=== PATIENT | male | born 1975 | race Caucasian/White ===

== ENCOUNTER 2020-07-18 07:53 | Outpatient (REF) | payer BC, SELFPAY ==
[2020-07-18 12:12] LABS: Alanine Aminotransferase 41 U/L (0-40); Albumin Level 4.4 g/dL (3.5-5.0); Alkaline Phosphatase 69 U/L (39-117); Aspartate Amino Transferase 19 U/L (5-37); Bilirubin Direct 0.2 mg/dL (0.0-0.5); Bilirubin Total 0.4 mg/dL (0.0-1.0); Cholesterol 184 mg/dL; HDL Cholesterol 35 mg/dL; LDL Cholesterol Calculated 116 mg/dl; Total Protein 7.5 g/dL (6.5-8.0); Triglycerides 166 mg/dL
[2020-07-18 12:37] LABS: Estimated Average Glucose 120 mg/dL; Hemoglobin A1c % 5.8 %
== END 2020-07-18 07:54 | disposition home or self-care (01) ==
LOC: HO.MANLR 07:53
PROVIDERS: PCP Internal Medicine; Visit Provider Internal Medicine
DX: R73.01 Impaired fasting glucose (principal); R94.5 Abnormal results of liver function studies
CPT/HCPCS: 36415; 80061; 80076; 83036

== ENCOUNTER 2020-12-19 08:57 | Outpatient (REF) | payer BC, SELFPAY ==
[2020-12-19 11:07] LABS: Estimated Average Glucose 131 mg/dL; Hemoglobin A1c % 6.2 %
[2020-12-19 11:21] LABS: Alanine Aminotransferase 75 U/L (0-40); Albumin Level 4.6 g/dL (3.5-5.0); Alkaline Phosphatase 73 U/L (39-117); Aspartate Amino Transferase 36 U/L (5-37); Bilirubin Direct 0.3 mg/dL (0.0-0.5); Bilirubin Total 1.1 mg/dL (0.0-1.0); Cholesterol 197 mg/dL; HDL Cholesterol 32 mg/dL; LDL Cholesterol Calculated 137 mg/dl; Total Protein 7.6 g/dL (6.5-8.0); Triglycerides 144 mg/dL
== END 2020-12-19 08:58 | disposition home or self-care (01) ==
LOC: HO.MANLDS 08:57
PROVIDERS: PCP Internal Medicine; Visit Provider Internal Medicine
DX: R94.5 Abnormal results of liver function studies (principal); R73.01 Impaired fasting glucose
CPT/HCPCS: 36415; 80061; 80076; 83036

== ENCOUNTER 2021-03-20 08:14 | Outpatient (REF) | payer BC, SELFPAY ==
[2021-03-20 12:03] LABS: Alanine Aminotransferase 96 U/L (0-40); Albumin Level 4.6 g/dL (3.5-5.0); Alkaline Phosphatase 68 U/L (39-117); Aspartate Amino Transferase 42 U/L (5-37); Bilirubin Direct 0.3 mg/dL (0.0-0.5); Bilirubin Total 1.1 mg/dL (0.0-1.0); Cholesterol 213 mg/dL; HDL Cholesterol 35 mg/dL; LDL Cholesterol Calculated 133 mg/dl; Total Protein 7.6 g/dL (6.5-8.0); Triglycerides 228 mg/dL
[2021-03-21 07:21] LABS: Estimated Average Glucose 154 mg/dL
== END 2021-03-20 08:15 | disposition home or self-care (01) ==
LOC: HO.MANLDS 08:14
PROVIDERS: PCP Internal Medicine; Visit Provider Internal Medicine
DX: R73.01 Impaired fasting glucose (principal); R94.5 Abnormal results of liver function studies
CPT/HCPCS: 36415; 80061; 80076; 83036

== ENCOUNTER 2021-06-16 08:06 | Outpatient (REF) | payer BC, SELFPAY ==
[2021-06-16 11:16] LABS: Estimated Average Glucose 117 mg/dL; Hemoglobin A1c % 5.7 %
[2021-06-16 12:05] LABS: Alanine Aminotransferase 35 U/L (0-40); Albumin Level 4.5 g/dL (3.5-5.0); Alkaline Phosphatase 58 U/L (39-117); Aspartate Amino Transferase 19 U/L (5-37); Bilirubin Direct 0.3 mg/dL (0.0-0.5); Bilirubin Total 0.9 mg/dL (0.0-1.0); Cholesterol 188 mg/dL; HDL Cholesterol 36 mg/dL; LDL Cholesterol Calculated 128 mg/dl; Total Protein 7.6 g/dL (6.5-8.0); Triglycerides 121 mg/dL
== END 2021-06-16 08:07 | disposition home or self-care (01) ==
LOC: HO.MANLDS 08:06
PROVIDERS: PCP Internal Medicine; Visit Provider Internal Medicine
DX: E11.9 Type 2 diabetes mellitus without complications (principal); R94.5 Abnormal results of liver function studies
CPT/HCPCS: 36415; 80061; 80076; 83036

== ENCOUNTER 2021-09-25 08:36 | Outpatient (REF) | payer BC, SELFPAY ==
[2021-09-25 11:50] LABS: Alanine Aminotransferase 32 U/L (0-40); Albumin Level 4.5 g/dL (3.5-5.0); Alkaline Phosphatase 62 U/L (39-117); Aspartate Amino Transferase 19 U/L (5-37); Bilirubin Direct 0.3 mg/dL (0.0-0.5); Bilirubin Total 1.2 mg/dL (0.0-1.0); Cholesterol 184 mg/dL; HDL Cholesterol 33 mg/dL; LDL Cholesterol Calculated 121 mg/dl; Total Protein 7.7 g/dL (6.5-8.0); Triglycerides 150 mg/dL
[2021-09-25 12:33] LABS: Estimated Average Glucose 120 mg/dL; Hemoglobin A1c % 5.8 %
== END 2021-09-25 08:37 | disposition home or self-care (01) ==
LOC: HO.MANLDS 08:36
PROVIDERS: PCP Internal Medicine; Visit Provider Internal Medicine
DX: R94.5 Abnormal results of liver function studies (principal); E11.9 Type 2 diabetes mellitus without complications
CPT/HCPCS: 36415; 80061; 80076; 83036

== ENCOUNTER 2022-03-04 15:16 | Outpatient (REF) | payer BC, SELFPAY ==
--- NOTE | ~2022-03-04 | XR_ITS ---
EXAMINATION: XR SHOULDER, RIGHT CLINICAL INFORMATION: Injury COMPARISON: None TECHNIQUE: AP external rotation, Grashey, scapular Y, and axillary views of the right shoulder. FINDINGS: The bones and soft tissues are normal. No fracture. Glenohumeral and acromioclavicular alignment is anatomic with normal joint space. No abnormal soft tissue calcifications. XR/XR shoulder RT min 2V IMPRESSION: Normal right shoulder.
== END 2022-03-04 15:17 | disposition home or self-care (01) ==
LOC: HO.XRAY 15:16
PROVIDERS: PCP Internal Medicine; Visit Provider Internal Medicine
DX: S46.001A Unspecified injury of muscle(s) and tendon(s) of the rotator cuff of right shoulder, initial encounter (principal)
CPT/HCPCS: 73030

== ENCOUNTER 2022-03-09 08:05 | Outpatient (REF) | payer BC, SELFPAY ==
[2022-03-09 11:48] LABS: Estimated Average Glucose 120 mg/dL; Hemoglobin A1c % 5.8 %
[2022-03-09 12:12] LABS: Alanine Aminotransferase 43 U/L (0-40); Albumin Level 4.6 g/dL (3.5-5.0); Alkaline Phosphatase 57 U/L (39-117); Aspartate Amino Transferase 23 U/L (5-37); Bilirubin Direct 0.2 mg/dL (0.0-0.5); Bilirubin Total 0.7 mg/dL (0.0-1.0); Cholesterol 209 mg/dL; HDL Cholesterol 33 mg/dL; LDL Cholesterol Calculated 148 mg/dl; Total Protein 7.8 g/dL (6.5-8.0); Triglycerides 144 mg/dL
== END 2022-03-09 08:06 | disposition home or self-care (01) ==
LOC: HO.MANLDS 08:05
PROVIDERS: Visit Provider Internal Medicine
DX: R94.5 Abnormal results of liver function studies (principal); E11.9 Type 2 diabetes mellitus without complications
CPT/HCPCS: 36415; 80061; 80076; 83036

== ENCOUNTER 2022-07-26 07:48 | Outpatient (REF) | payer BC, SELFPAY ==
[2022-07-26 14:15] LABS: Estimated Average Glucose 131 mg/dL; Hemoglobin A1c % 6.2 %
[2022-07-26 14:26] LABS: Alanine Aminotransferase 53 U/L (0-40); Albumin Level 4.5 g/dL (3.5-5.0); Alkaline Phosphatase 58 U/L (39-117); Aspartate Amino Transferase 26 U/L (5-37); Bilirubin Direct 0.2 mg/dL (0.0-0.5); Bilirubin Total 0.7 mg/dL (0.0-1.0); Cholesterol 194 mg/dL; HDL Cholesterol 30 mg/dL; LDL Cholesterol Calculated 130 mg/dl; Total Protein 7.5 g/dL (6.5-8.0); Triglycerides 173 mg/dL
== END 2022-07-26 07:49 | disposition home or self-care (01) ==
LOC: HO.MANLDS 07:48
PROVIDERS: Visit Provider Internal Medicine
DX: R94.5 Abnormal results of liver function studies (principal); E11.9 Type 2 diabetes mellitus without complications
CPT/HCPCS: 36415; 80061; 80076; 83036

== ENCOUNTER 2022-11-15 07:34 | Outpatient (REF) | payer BC, SELFPAY ==
[2022-11-15 11:53] LABS: Estimated Average Glucose 131 mg/dL; Hemoglobin A1c % 6.2 %
[2022-11-15 12:12] LABS: Alanine Aminotransferase 46 U/L (0-40); Albumin Level 4.7 g/dL (3.5-5.0); Alkaline Phosphatase 66 U/L (39-117); Anion Gap 10 (12-20); Aspartate Amino Transferase 25 U/L (5-37); Bilirubin Total 0.6 mg/dL (0.0-1.0); Blood Urea Nitrogen 20 mg/dL (9-16); Calcium 9.6 mg/dL (8.4-10.2); Carbon Dioxide 30 mmol/L (22-29); Chloride 104 mmol/L (96-108); Cholesterol 128 mg/dL; Estimated Glomerular Filt Rate 51; Glucose Random 135 mg/dL (60-115); HDL Cholesterol 35 mg/dL; LDL Cholesterol Calculated 71 mg/dl; Potassium 4.5 mmol/L (3.3-5.1); Sodium 139 mmol/L (135-145); Total Protein 7.7 g/dL (6.5-8.0); Triglycerides 111 mg/dL
== END 2022-11-15 07:35 | disposition home or self-care (01) ==
LOC: HO.MANLDS 07:34
PROVIDERS: Visit Provider Internal Medicine
DX: I25.10 Atherosclerotic heart disease of native coronary artery without angina pectoris (principal); I25.84 Coronary atherosclerosis due to calcified coronary lesion; E88.81 Metabolic syndrome and other insulin resistance
CPT/HCPCS: 36415; 80053; 80061; 83036

== ENCOUNTER 2022-11-23 10:10 | Outpatient (REF) | payer BC, SELFPAY ==
[2022-11-23 12:09] LABS: Anion Gap 13 (12-20); Blood Urea Nitrogen 14 mg/dL (9-16); Calcium 9.7 mg/dL (8.4-10.2); Carbon Dioxide 27 mmol/L (22-29); Chloride 103 mmol/L (96-108); Estimated Glomerular Filt Rate > 60; Glucose Random 126 mg/dL (60-115); Potassium 3.9 mmol/L (3.3-5.1); Sodium 139 mmol/L (135-145)
[2022-11-23 12:19] LABS: Creatinine Urine 63.32 mg/dL; Microalbumin Urine < 5.0 mg/L
== END 2022-11-23 10:11 | disposition home or self-care (01) ==
LOC: HO.MANLDS 10:10
PROVIDERS: Visit Provider Internal Medicine
DX: R03.0 Elevated blood-pressure reading, without diagnosis of hypertension (principal); R73.01 Impaired fasting glucose
CPT/HCPCS: 36415; 80048; 82043

== ENCOUNTER 2023-02-08 07:57 | Outpatient (REF) | payer BC, SELFPAY ==
[2023-02-08 14:05] LABS: Estimated Average Glucose 140 mg/dL; Hemoglobin A1c % 6.5 %
[2023-02-08 14:11] LABS: Anion Gap 11 (12-20); Blood Urea Nitrogen 15 mg/dL (9-16); Calcium 9.4 mg/dL (8.4-10.2); Carbon Dioxide 27 mmol/L (22-29); Chloride 105 mmol/L (96-108); Cholesterol 114 mg/dL; Estimated Glomerular Filt Rate > 60; Glucose Random 135 mg/dL (60-115); HDL Cholesterol 34 mg/dL; LDL Cholesterol Calculated 63 mg/dl; Potassium 4.2 mmol/L (3.3-5.1); Sodium 139 mmol/L (135-145); Triglycerides 87 mg/dL
== END 2023-02-08 07:58 | disposition home or self-care (01) ==
LOC: HO.MANLDS 07:57
PROVIDERS: Visit Provider Internal Medicine
DX: R03.0 Elevated blood-pressure reading, without diagnosis of hypertension (principal); E88.81 Metabolic syndrome and other insulin resistance; I25.84 Coronary atherosclerosis due to calcified coronary lesion; R73.01 Impaired fasting glucose
CPT/HCPCS: 36415; 80048; 80061; 83036

== ENCOUNTER 2023-05-10 07:50 | Outpatient (REF) | payer BC, SELFPAY ==
[2023-05-10 13:45] LABS: Estimated Average Glucose 137 mg/dL; Hemoglobin A1c % 6.4 % (<6.0)
[2023-05-10 14:07] LABS: Alanine Aminotransferase 58 U/L (0-40); Albumin Level 4.5 g/dL (3.5-5.0); Alkaline Phosphatase 55 U/L (39-117); Anion Gap 11 (12-20); Aspartate Amino Transferase 33 U/L (5-37); Bilirubin Total 0.7 mg/dL (0.0-1.0); Blood Urea Nitrogen 14 mg/dL (9-16); Calcium 9.4 mg/dL (8.4-10.2); Carbon Dioxide 27 mmol/L (22-29); Chloride 107 mmol/L (96-108); Estimated Glomerular Filt Rate > 60; Glucose Random 145 mg/dL (60-115); Potassium 4.3 mmol/L (3.3-5.1); Sodium 141 mmol/L (135-145); Total Protein 7.6 g/dL (6.5-8.0)
== END 2023-05-10 07:51 | disposition home or self-care (01) ==
LOC: HO.MANLDS 07:50
PROVIDERS: Visit Provider Internal Medicine
DX: R73.01 Impaired fasting glucose (principal)
CPT/HCPCS: 36415; 80053; 83036

== ENCOUNTER 2023-07-08 07:48 | Outpatient (REF) | payer BC, SELFPAY ==
[2023-07-13 19:23] LABS: Erythropoietin (EPO) 10.6 mIU/mL (2.6-18.5)
== END 2023-07-08 07:49 | disposition home or self-care (01) ==
LOC: HO.MANLDS 07:48
PROVIDERS: Visit Provider Internal Medicine
DX: E11.9 Type 2 diabetes mellitus without complications (principal)
CPT/HCPCS: 36415; 80053; 82668; 83036; 86140; 86431

== ENCOUNTER 2023-10-21 07:28 | Outpatient (REF) | payer BC, SELFPAY ==
[2023-10-21 13:34] LABS: MANUAL DIFF FLAG NO
[2023-10-21 13:45] LABS: Basophils Percent Auto 0.2 % (0-2); Eosinophils Absolute Auto 0.2 X10*3/uL (0.0-0.4); Eosinophils Percent Auto 3.1 % (0-4); Imm Gran Abs Auto 0.03 X10*3/uL (0.00-0.03); Imm Gran Pct Auto 0.6 % (0.0-0.4); Lymphocytes Absolute Auto 1.5 X10*3/uL (1.2-4.9); Lymphocytes Percent Auto 30.2 % (20-40); Mean Corpuscular HGB Conc 34.8 g/dl (31.0-36.0); Mean Corpuscular Hemoglobin 30.2 pg (27.0-33.0); Mean Platelet Volume 10.4 fL (9.4-12.4); Monocytes Absolute Auto 0.3 X10*3/uL (0.1-1.2); Monocytes Percent Auto 6.1 % (2-11); Neutrophils Absolute Auto 3.1 x10*3/uL (2.0-8.3); Neutrophils Percent Auto 59.8 % (45-73); Platelet Count 187 X10*3/uL (160-400); Red Blood Count 5.29 X10*6/uL (4.60-5.80); Red Cell Distribution Width 11.9 % (11.0-16.0); White Blood Count 5.1 X10*3/uL (4.8-10.8)
[2023-10-21 15:25] LABS: Estimated Average Glucose 154 mg/dL
[2023-10-21 16:33] LABS: Alanine Aminotransferase 50 U/L (0-40); Albumin Level 4.4 g/dL (3.5-5.0); Alkaline Phosphatase 59 U/L (39-117); Anion Gap 11 (12-20); Aspartate Amino Transferase 25 U/L (5-37); Bilirubin Total 0.7 mg/dL (0.0-1.0); Blood Urea Nitrogen 15 mg/dL (9-16); Calcium 9.2 mg/dL (8.4-10.2); Carbon Dioxide 27 mmol/L (22-29); Chloride 105 mmol/L (96-108); Cholesterol 144 mg/dL (<200); Estimated Glomerular Filt Rate > 60; Glucose Random 134 mg/dL (60-115); HDL Cholesterol 35 mg/dL (>40); LDL Cholesterol Calculated 86 mg/dL (<100); Sodium 139 mmol/L (135-145); Total Protein 7.5 g/dL (6.5-8.0); Triglycerides 118 mg/dL (<150)
== END 2023-10-21 07:29 | disposition home or self-care (01) ==
LOC: HO.MANLDS 07:28
PROVIDERS: Visit Provider Internal Medicine
DX: E11.9 Type 2 diabetes mellitus without complications (principal); E78.5 Hyperlipidemia, unspecified
CPT/HCPCS: 36415; 80053; 80061; 83036; 85025

== ENCOUNTER 2024-02-13 07:57 | Outpatient (REF) | payer BC, SELFPAY ==
[2024-02-13 13:37] LABS: Alanine Aminotransferase 38 U/L (0-40); Albumin Level 4.5 g/dL (3.5-5.0); Alkaline Phosphatase 58 U/L (39-117); Anion Gap 13 (12-20); Aspartate Amino Transferase 23 U/L (5-37); Bilirubin Total 0.7 mg/dL (0.0-1.0); Blood Urea Nitrogen 15 mg/dL (9-16); Calcium 9.6 mg/dL (8.4-10.2); Carbon Dioxide 23 mmol/L (22-29); Chloride 107 mmol/L (96-108); Estimated Glomerular Filt Rate > 60; Glucose Random 127 mg/dL (60-115); Sodium 139 mmol/L (135-145); Total Protein 7.6 g/dL (6.5-8.0)
[2024-02-13 13:43] LABS: Estimated Average Glucose 120 mg/dL; Hemoglobin A1c % 5.8 % (<6.0)
== END 2024-02-13 07:58 | disposition home or self-care (01) ==
LOC: HO.MANLDS 07:57
PROVIDERS: Visit Provider Internal Medicine
DX: R73.01 Impaired fasting glucose (principal)
CPT/HCPCS: 36415; 80053; 83036

== ENCOUNTER 2024-05-21 08:23 | Outpatient (REF) | payer BC, SELFPAY ==
[2024-05-21 09:15] LABS: Estimated Average Glucose 128 mg/dL; Hemoglobin A1C 181.3263 umol/L; Hemoglobin A1c % 6.1 % (<6.0); Total Hemoglobin (HGBA1C) 4171.0195 umol/L
== END 2024-05-21 08:24 | disposition home or self-care (01) ==
LOC: HO.LAB 08:23
PROVIDERS: PCP Internal Medicine; Visit Provider Internal Medicine
DX: E11.9 Type 2 diabetes mellitus without complications (principal)
CPT/HCPCS: 36415; 83036

== ENCOUNTER 2024-08-25 07:08 | Outpatient (REF) | payer BC, SELFPAY ==
[2024-08-25 07:33] LABS: MANUAL DIFF FLAG NO
[2024-08-25 08:10] LABS: Basophils Percent Auto 0.4 % (0-2); Eosinophils Absolute Auto 0.2 X10*3/uL (0.0-0.4); Eosinophils Percent Auto 3.6 % (0-4); Hemoglobin 15.3 g/dl (14.0-18.0); Imm Gran Abs Auto 0.01 X10*3/uL (0.00-0.03); Imm Gran Pct Auto 0.2 % (0.0-0.4); Lymphocytes Absolute Auto 1.7 X10*3/uL (1.2-4.9); Lymphocytes Percent Auto 33.4 % (20-40); Mean Corpuscular HGB Conc 34.8 g/dl (31.0-36.0); Mean Corpuscular Hemoglobin 30.2 pg (27.0-33.0); Mean Corpuscular Volume 86.8 fL (80.0-98.0); Mean Platelet Volume 9.9 fL (9.4-12.4); Monocytes Absolute Auto 0.4 X10*3/uL (0.1-1.2); Monocytes Percent Auto 7.9 % (2-11); Neutrophils Absolute Auto 2.8 x10*3/uL (2.0-8.3); Neutrophils Percent Auto 54.5 % (45-73); Platelet Count 175 X10*3/uL (160-400); Red Blood Count 5.07 X10*6/uL (4.60-5.80); Red Cell Distribution Width 11.9 % (11.0-16.0); White Blood Count 5.1 X10*3/uL (4.8-10.8)
[2024-08-25 08:13] LABS: Estimated Average Glucose 123 mg/dL; Hemoglobin A1c % 5.9 % (<6.0); Total Hemoglobin (HGBA1C) 3854.1394 umol/L
[2024-08-25 09:09] LABS: Alanine Aminotransferase 50 U/L (0-40); Albumin Level 4.5 g/dL (3.5-5.0); Alkaline Phosphatase 52 U/L (39-117); Anion Gap 11 (12-20); Aspartate Amino Transferase 28 U/L (5-37); Bilirubin Total 0.6 mg/dL (0.0-1.0); Blood Urea Nitrogen 20 mg/dL (9-16); Calcium 9.4 mg/dL (8.4-10.2); Carbon Dioxide 25 mmol/L (22-29); Chloride 106 mmol/L (96-108); Cholesterol 122 mg/dL (<200); Estimated Glomerular Filt Rate > 60; Glucose Random 121 mg/dL (60-115); HDL Cholesterol 33 mg/dL (>40); LDL Cholesterol Calculated 77 mg/dL (<100); Potassium 4.1 mmol/L (3.3-5.1); Sodium 138 mmol/L (135-145); Total Protein 7.9 g/dL (6.5-8.0); Triglycerides 64 mg/dL (<150)
[2024-08-25 09:30] LABS: Vitamin D 25-OH Total 21.4 ng/mL (>30)
== END 2024-08-25 07:09 | disposition home or self-care (01) ==
LOC: HO.LAB 07:08
PROVIDERS: PCP Internal Medicine; Visit Provider Internal Medicine
DX: E11.9 Type 2 diabetes mellitus without complications (principal)
CPT/HCPCS: 36415; 80053; 80061; 82306; 83036; 85025

== ENCOUNTER 2024-12-07 07:40 | Outpatient (REF) | payer BC, SELFPAY ==
[2024-12-07 14:05] LABS: Estimated Average Glucose 131 mg/dL; Hemoglobin A1c % 6.2 % (<6.0)
== END 2024-12-07 07:41 | disposition home or self-care (01) ==
LOC: HO.MANLDS 07:40
PROVIDERS: Visit Provider Internal Medicine
DX: E11.9 Type 2 diabetes mellitus without complications (principal)
CPT/HCPCS: 36415; 83036

== ENCOUNTER 2025-04-02 07:45 | Outpatient (REF) | payer BC, SELFPAY ==
--- OUTSIDE RECORDS SUMMARY | 2025-04-02 07:54 | XMS_ITS | Encounter Summary ---
Author Organization [facility] Address [address] [place] [address] Phone Care Team Providers Care Associate Project Manager Name Role Phone Lucas Umana DO Primary Care Provider [phone] Lucas Umana DO Unavailable Reason for Referral * MRI/CAT Scan - Closed Specialty Diagnoses / Procedures Referred By Contac t Referred To Contact Radiology Diagnoses Rotator cuff syndrome of right shoulder Procedures MRI Shoulder (Right) CHG MRI, JOINT UPPER EXTREM Lucas Umana DO Phone: tel: fax: [email or web address] [facility] [address] [place], [place] Phone: tel: Referral ID Status Reason Start Date Expiration Date Visits Re quested Visits Authorized [id number] Closed 04/09/2022 05/09/2022 1 1 Encounter Details Date Type Department Care Team (Late st Contact Info) Description 03/31/2022 Transcribe Orders Virtual Department [address] [place] [address] Lucas Umana DO [address] [facility] [address] [email or web address] Rotator cuff syndrome of right shoulder (Primary Dx) Social History Tobacco Use Types Packs/Day Years Used Date Smoking Tobacco: Never Assessed Sex and Gender Information Value Date Recorded Sex Assigned at Male 01/22/2020 9:10 PM EDT Legal Sex Male 9:25 PM EDT Gender Identity Male 01/22/2020 9:10 PM EDT Sexual Orientation Not on file documented as of this encounter Plan of Treatment Not on file documented as of this encounter Results * MRI SHOULDER WITHOUT CONTRAST (RIGHT) (04/09/2022 8:11 AM EDT) Anatomical Region Laterality Modality Shoulder Right Magnetic Resonan ce 04/09/2022 7:37 PM EDT Impressions 04/09/2022 7:53 PM EDT 1.Rim rent tear of the infraspinatus tendon. 2.Supraspinatus and subscapularis tendinosis. 3.Trace subacromial subdeltoid bursal fluid may reflect pinhole full-thickness tear or bursitis. 4.Anterosuperior labral tear associated with small labral cyst. 5.Mild tendinopathy of the intra-articular portion of the biceps tendon. Narrative 04/09/2022 7:53 PM EDT MRI SHOULDER WITHOUT CONTRAST (RIGHT) TECHNIQUE: Multi-sequence, multi-planar MRI of the shoulder without intravenous contrast. COMPARISON: None FINDINGS: Coracoacromial Arch: Moderate osteoarthritic changes of the acromioclavicular joint. Trace subacromial-subdeltoid bursal fluid. Rotator Cuff: No focal muscle atrophy. Tendinosis of the supraspinatus and subscapularis tendons. Rim rent (partial articular surface) tear of the infraspinatus tendon (5:5, 7:17); pinhole full-thickness tear cannot be excluded. Teres minor tendon is intact. Glenoid Labrum and Biceps Tendon: There is tear of the anterosuperior labrum associated with small labral cyst (7:9). Mild tendinopathy of the intra- articular portion of the biceps tendon. The tendon is otherwise intact and normally located within the bicipital groove. Bones: No fracture, osteonecrosis, or focal lesion. Glenohumeral Joint: No effusion, synovitis, or capsulitis. Procedure Note Jesús Yuen MD - 04/09/2022 MRI SHOULDER WITHOUT CONTRAST (RIGHT) TECHNIQUE: Multi-sequence, multi-planar MRI of the shoulder withoutintravenous contrast. COMPARISON: None FINDINGS: Coracoacromial Arch: Moderate osteoarthritic changes of theacromioclavicular joint. Trace subacromial-subdeltoid bursal fluid. Rotator Cuff: No focal muscle atrophy. Tendinosis of the supraspinatus andsubscapularis tendons. Rim rent (partial articular surface) tear of theinfraspinatus tendon (5:5, 7:17); pinhole full-thickness tear cannot beexcluded. Teres minor tendon is intact. Glenoid Labrum and Biceps Tendon: There is tear of the anterosuperiorlabrum associated with small labral cyst (7:9). Mild tendinopathy of theintra-articular portion of the biceps tendon. The tendon is otherwiseintact and normally located within the bicipital groove. Bones: No fracture, osteonecrosis, or focal lesion. Glenohumeral Joint: No effusion, synovitis, or capsulitis. IMPRESSION: 1.Rim rent tear of the infraspinatus tendon. 2.Supraspinatus and subscapularis tendinosis. 3.Trace subacromial subdeltoid bursal fluid may reflect pinholefull-thickness tear or bursitis. 4.Anterosuperior labral tear associated with small labral cyst. 5.Mild tendinopathy of the intra-articular portion of the biceps tendon. Lucas Umana DO [facility]REM[place] Final Result documented in this encounter Visit Diagnoses Diagnosis Rotator cuff syndrome of right shoulder- Primary Rotator cuff syndrome of right shoulder documented in this encounter Care Teams Associate Project Manager Relationship Specialty Start Date End Date Lucas Umana DO PCP - General 04/18/17 Lucas Umana DO [address] [place] [phone] (work) [email or web address] Insurance Assigned Provider 10/08/23 documented as of this encounter Additional Source Comments The information contained in this document represents components of the legal health record. It is not the complete legal health record.[facility]
--- OUTSIDE RECORDS SUMMARY | 2025-04-02 07:54 | XMS_ITS | Encounter Summary ---
Author Organization [facility] Address [address] [place] [phone] Phone Care Team Providers Care Chief Deputy Sheriff Name Role Phone Lyndsay Lucas Summers DO Primary Care Provider [phone] Lucas Umana DO Unavailable Encounter Details Date Type Department Care Team (Late st Contact Info) Description 03/31/2022 Procedure Pass [facility], [address] [address] Social History Tobacco Use Types Packs/Day Years Used Date Smoking Tobacco: Never Assessed Sex and Gender Information Value Date Recorded Sex Assigned at Male 01/22/2020 9:10 PM EDT Legal Sex Male 9:25 PM EDT Gender Identity Male 01/22/2020 9:10 PM EDT Sexual Orientation Not on file documented as of this encounter Plan of Treatment Not on file documented as of this encounter Visit Diagnoses Not on filedocumented in this encounter Care Teams Chief Deputy Sheriff Relationship Specialty Start Date End Date Lcuas Umana DO PCP - General 04/18/17 Lucas Umana DO [address] [place] [phone] Insurance Assigned Provider 10/08/23 documented as of this encounter Additional Source Comments The information contained in this document represents components of the legal health record. It is not the complete legal health record.[facility]
--- OUTSIDE RECORDS SUMMARY | 2025-04-02 07:55 | XMS_ITS | Encounter Summary ---
Author Organization [facility] Address [address] [place] [address] Phone Care Team Providers Care System Operator Name Role Phone Lucas Umana DO Primary Care Provider [phone] Lucas Umana DO Unavailable Encounter Details Date Type Department Care Team ([facility] st Contact Info) Description 02/15/2023 Transcribe Orders Virtual Department [address] [place] [address] Lucas Umana DO [address] [facility] [place] [address] [email or web address] Pain in finger of both hands (Primary Dx) Social History Tobacco Use Types Packs/Day Years Used Date Smoking Tobacco: Never Passive Smoke Exposure: Never Smokeless Tobacco: Never Education Answer Date Recorded Are you interested in more education? Not on celine e 10/29/2022 Are you concerned about learning? Not on file 10/29/2022 No 10/29/2022 No 10/29/2022 Digital Access Answer Date Recorded No 11/24/2022 No 11/24/2022 Reliable internet access at home? Not on file 11/24/2022 Device with a working camera? Not on file Sex and Gender Information Value Date Recorded Sex Assigned at Male 01/22/2020 9:10 PM EDT Legal Sex Male 9:25 PM EDT Gender Identity Male 01/22/2020 9:10 PM EDT Sexual Orientation Not on file documented as of this encounter Plan of Treatment Not on file documented as of this encounter Visit Diagnoses Diagnosis Pain in finger of both hands- Primary documented in this encounter Care Teams System Operator Relationship Specialty Start Date End Date Lucas Umana DO [email or web address] PCP - General 04/18/17 Lucas Umana DO [address] [place] [address] [email or web address] Insurance Assigned Provider 10/08/23 documented as of this encounter Additional Source Comments The information contained in this document represents components of the legal health record. It is not the complete legal health record.[facility]
--- OUTSIDE RECORDS SUMMARY | 2025-04-02 07:55 | XMS_ITS | Encounter Summary ---
Author Organization [facility] Address [address] [place] [phone] Phone Care Team Providers Care Coin Dealer Name Role Phone Lucas Umana DO Primary Care Provider [phone] Lucas Umana DO Unavailable Encounter Details Date Type Department Care Team ([facility] st Contact Info) Description 03/21/2020 Transcribe Orders Virtual Department [address] [place] [address] Lucas Umana DO [address] [facility] [place] [address] [place] [address] Abnormal LFTs (Primary Dx) Social History Tobacco Use Types [...] documented as of this encounter Results * US ABDOMEN LIMITED RIGHT UPPER QUADRANT (04/10/2020 7:38 AM EDT) Anatomical Region Laterality Modality Abdomen Ultrasound 04/10/2020 8:07 AM EDT Impressions 04/10/2020 8:14 AM EDT *Limited by bowel gas.* 1.Hepatic steatosis. 2.Pancreas not visualized. Narrative 04/10/2020 8:14 AM EDT COMPARISON: None. LIMITED ABDOMEN ULTRASOUND FINDINGS: *Study limited by bowel gas.* Liver: Echogenic and sound attenuating. Gallbladder/Biliary Tree: Gallbladder is normal. The common bile duct measures 3 mm which is normal. Pancreas: The pancreas is obscured by bowel gas. Right Kidney: No hydronephrosis. Proximal abdominal aorta/IVC/Main portal vein: IVC and aorta are not visualized. Main portal vein is patent with normal hepatopedal flow. Procedure Note Yadiel Doan MD - 04/10/2020 COMPARISON: None. LIMITED ABDOMEN ULTRASOUND FINDINGS: *Study limited by bowel gas.* Liver: Echogenic and sound attenuating. Gallbladder/Biliary Tree: Gallbladder is normal. The common bile ductmeasures 3 mm which is normal. Pancreas: The pancreas is obscured by bowel gas. Right Kidney: No hydronephrosis. Proximal abdominal aorta/IVC/Main portal vein: IVC and aorta are notvisualized. Main portal vein is patent with normal hepatopedal flow. IMPRESSION: *Limited by bowel gas.* 1.Hepatic steatosis. 2.Pancreas not visualized. us Lucas Umana DO IMG US ABDOMEN Final Result documented in this encounter Visit Diagnoses Diagnosis Abnormal LFTs- Primary Abnormal LFTs documented in this encounter Care Teams Coin Dealer Relationship Specialty Start Date End Date Lucas Umana DO PCP - General 04/18/17 Lucas Umana DO [address] [place] [address] [email or web address] Insurance Assigned Provider 10/08/23 documented as of this encounter Additional Source Comments The information contained in this document represents components of the legal health record. It is not the complete legal health record.[facility]
--- OUTSIDE RECORDS SUMMARY | 2025-04-02 07:55 | XMS_ITS | Encounter Summary ---
Author Organization [facility] Address [address] [place] [address] Phone Care Team Providers Care Thermospray Operator Name Role Phone Lucas Umana DO Primary Care Provider [phone] Lucas Umana DO Unavailable Reason for Referral * MRI/CAT Scan - Closed Specialty Diagnoses / Procedures Referred By Contac t Referred To Contact Radiology Diagnoses Cervical disc disorder with radiculopathy, unspecified cervical region Procedures MRI Cervical Spine Lucas Umana DO Phone: tel: fax: [email or web address] Referral ID Status Reason Start Date Expiration Date Visits Re quested Visits Authorized [id number] Closed 08/10/2019 08/09/2020 1 1 Encounter Details Date Type Department Care Team (Late st Contact Info) Description 08/10/2019 Transcribe Orders Virtual Department [address] [place] [address] Lucas Umana DO [address] [facility] [place] [address] [email or web address] Cervical disc disorder with radiculopathy, unspecified cervical region (Primary Dx) Social History Tobacco Use Types [...] as of this encounter Results * MRI CERVICAL SPINE (NEURO) FOCUS WITHOUT CONTRAST (08/16/2019 9:49 PM EST) Anatomical Region Laterality Modality C-spine Magnetic Resonan ce 08/17/2019 12:2 4 PM EST Impressions 08/17/2019 12:48 PM EST 1. Reversal of the normal cervical curvature. 2. Degenerative disc desiccation C2-C6. 3. Mild central canal stenosis at C3-C4 and C4-C5 secondary to mild disc bulging/disc osteophyte complexes, small central disc protrusion at C4-C5, in combination with reversal of the cervical curvature. 4. No significant neural foraminal stenosis. POS [id number] Narrative 08/17/2019 12:48 PM EST EXAM: MRI CERVICAL SPINE (NEURO) FOCUS WITHOUT CONTRAST HISTORY: *Cervical disc disorder PROGRESSIVE LEFT RADICULOPATHY WITH HAND WEAKNESS AND PARASTHENIA TECHNIQUE: Exam performed on a 1.5 Samantha high-field MRI unit. Sagittal T1, T2 and STIR, axial T2* gradient echo and 3-D T2 sequences obtained. COMPARISON: None. FINDINGS: ALIGNMENT, VERTEBRAE, MARROW AND DISCS: There is reversal of the normal cervical curvature. Vertebrae are normal in height and alignment.. Bone marrow signal is normal. No bone marrow edema or suspicious marrow infiltration. Intervertebral discs are normal in height. Central disc desiccation C2-C6 with the central discs darker in signal. POSTERIOR FOSSA AND CERVICAL SPINAL CORD: The cerebellar tonsils are normal in position. The visualized posterior fossa is normal. The cervical spinal cord is normal in signal. PARASPINOUS SOFT TISSUES: The prevertebral and paravertebral soft tissues are normal. Normal thyroid gland. SPINAL LEVELS: The craniocervical junction and C1-C2 articulation are normal. C2-C3: Normal disc height and signal. No canal or neural foraminal stenosis. C3-C4: Mild posterior disc osteophyte complex. Mild facet hypertrophy. Canal stenosis: Mild. Indentation upon the anterior thecal sac and anterior cord. Neural foraminal stenosis: None. C4-C5: Diffuse disc bulging/posterior disc osteophyte complex with small focal central disc protrusion. Mild bilateral uncovertebral and facet hypertrophy. Canal stenosis: Mild. Indentation upon the anterior thecal sac and anterior cord. Neural foraminal stenosis: None. C5-C6: Diffuse disc bulging/posterior disc osteophyte complex. Mild bilateral facet hypertrophy. Canal stenosis: None. Neural foraminal stenosis: None. C6-C7: No disc herniation. Canal stenosis: None. Neural foraminal stenosis: None. C7-T1: No disc herniation. Canal stenosis: None. Neural foraminal stenosis: None. T1-T2, T2-T3: Included on the sagittal sequences: No canal or neural foraminal stenosis. Procedure Note Yesenia Lewis MD - 08/17/2019 EXAM: MRI CERVICAL SPINE (NEURO) FOCUS WITHOUT CONTRAST HISTORY: *Cervical disc disorder PROGRESSIVE LEFT RADICULOPATHY WITH HAND WEAKNESS AND PARASTHENIA TECHNIQUE: Exam performed on a 1.5 Samantha high-field MRI unit. SagittalT1, T2 and STIR, axial T2* gradient echo and 3-D T2 sequences obtained. COMPARISON: None. FINDINGS: ALIGNMENT, VERTEBRAE, MARROW AND DISCS: There is reversal of the normalcervical curvature. Vertebrae are normal in height and alignment.. Bonemarrow signal is normal. No bone marrow edema or suspicious marrowinfiltration. Intervertebral discs are normal in height. Central discdesiccation C2-C6 with the central discs darker in signal. POSTERIOR FOSSA AND CERVICAL SPINAL CORD: The cerebellar tonsils arenormal in position. The visualized posterior fossa is normal. The cervicalspinal cord is normal in signal. PARASPINOUS SOFT TISSUES: The prevertebral and paravertebral soft tissuesare normal. Normal thyroid gland. SPINAL LEVELS: The craniocervical junction and C1-C2 articulation are normal. C2-C3: Normal disc height and signal. No canal or neural foraminalstenosis. C3-C4: Mild posterior disc osteophyte complex. Mild facet hypertrophy.Canal stenosis: Mild. Indentation upon the anterior thecal sac andanterior cord. Neural foraminal stenosis: None. C4-C5: Diffuse disc bulging/posterior disc osteophyte complex with smallfocal central disc protrusion. Mild bilateral uncovertebral and facethypertrophy. Canal stenosis: Mild. Indentation upon the anterior thecalsac and anterior cord. Neural foraminal stenosis: None. C5-C6: Diffuse disc bulging/posterior disc osteophyte complex. Mildbilateral facet hypertrophy. Canal stenosis: None. Neural foraminalstenosis: None. C6-C7: No disc herniation. Canal stenosis: None. Neural foraminalstenosis: None. C7-T1: No disc herniation. Canal stenosis: None. Neural foraminalstenosis: None. T1-T2, T2-T3: Included on the sagittal sequences: No canal or neuralforaminal stenosis. IMPRESSION: 1. Reversal of the normal cervical curvature. 2. Degenerative disc desiccation C2-C6. 3. Mild central canal stenosis at C3-C4 and C4-C5 secondary to mild discbulging/disc osteophyte complexes, small central disc protrusion at C4-C5,in combination with reversal of the cervical curvature. 4. No significant neural foraminal stenosis. POS [id number] Lucas Umana DO [facility] MR XSPECIALTY Final Result documented in this encounter Visit Diagnoses Diagnosis Cervical disc disorder with radiculopathy, unspecified cervical region- Primary Cervical disc disorder with radiculopathy, unspecified cervical region documented in this encounter Care Teams Thermospray Operator Relationship Specialty Start Date End Date Lucas Umana DO PCP - General 04/18/17 Lucas Umana DO [address] [place] [id number] Insurance Assigned Provider 10/08/23 documented as of this encounter Additional Source Comments The information contained in this document represents components of the legal health record. It is not the complete legal health record.[facility]
--- OUTSIDE RECORDS SUMMARY | 2025-04-02 07:55 | XMS_ITS | Encounter Summary ---
Author Organization [facility] Address [address] [place] [phone] Phone Care Team Providers Care Retread Supervisor Name Role Phone Lyndsay Lucas Summers DO Primary Care Provider [phone] Lucas Umana DO Unavailable Encounter Details Date Type Department Care Team (Late st Contact Info) Description 08/10/2019 Procedure Pass [facility], [address] [address] Social History Tobacco Use Types Packs/Day Years [...] on filedocumented in this encounter Care Teams Retread Supervisor Relationship Specialty Start Date End Date Lucas Umana DO PCP - General 04/18/17 Lucas Umana DO [address] [place] [phone] Insurance Assigned Provider 10/08/23 documented as of this encounter Additional Source Comments The information contained in this document represents components of the legal health record. It is not the complete legal health record.[facility]
--- OUTSIDE RECORDS SUMMARY | 2025-04-02 07:55 | XMS_ITS | Encounter Summary ---
Author Organization [facility] Address [address] [place] [address] Phone Care Team Providers Care Chief Gauger Name Role Phone Lucas Umana DO Primary Care Provider Lucas Umana DO Unavailable Encounter Details Date Type Department Care Team (Late st Contact Info) Description 08/22/2018 Ancillary Orders Virtual Department [address] [place] [address] Noemi Wakefield PA-C [address] [place] [address] Pneumonia due to infectious organism, unspecified laterality, unspecified part of lung Social History Tobacco Use Types Packs/Day Years [...] as of this encounter Visit Diagnoses Diagnosis Pneumonia due to infectious organism, unspecified laterality, unspecified part of lung documented in this encounter Care Teams Chief Gauger Relationship Specialty Start Date End Date Lucas Umana DO PCP - General 04/18/17 Lucas Umana DO [address] [place] [address] (work) [email or web address] Insurance Assigned Provider 10/08/23 documented as of this encounter Additional Source Comments The information contained in this document represents components of the legal health record. It is not the complete legal health record.[facility]
--- OUTSIDE RECORDS SUMMARY | 2025-04-02 07:55 | XMS_ITS | Clinical Summary ---
Author Organization [facility] Address [address] [place], [place] [id number] Phone Care Team Providers Care Turner Splitter Machine Operator Name Role Phone Lucas Umana DO Primary Care Provider [phone] DarrylLucas booth DO Unavailable Allergies Active Allergy Reactions Criticality Noted Date Comments Erythromycin Base 01/22/2020 Penicillin V 01/22/2020 Sulfa (Sulfonamide Antibiotics) 01/02 Medications Medication-Free Text Allergy Medication Active pantoprazole (PROTONIX) 40 MG tablet Take 40 mg by mouth daily. Active rosuvastatin (CRESTOR) 10 MG tablet Take 10 mg by mouth daily. Active diclofenac sodium (VOLTAREN) 75 MG EC tablet Take 75 mg by mouth 2 (two) times a day as needed. 3 Active meloxicam (MOBIC) 15 MG tablet Take 1 tablet by mouth every morning. 3 Active FREESTYLE LITE Strp strips TEST BLOOD SUGARS ONCE DAILY 3 Active Active Problems Problem Noted Date Diagnosed Date Calcification of coronary artery 2022 Hypercholesterolemia 08/03/2022 Elevated blood-pressure read ing without diagnosis of hypertension 12/26/2020 Abnormal liver function tests 11/24/2018 Gastroesophageal reflux disease 06/12/2018 Metabolic syndrome X 09/02/2017 Obstructive sleep apnea syndrome 09/02/2017 Immunizations Immunization Administration Dates Next Due COVID-19 (Pre-04/25) Pfizer Vaccine, mRNA, PF 11/02/2020,10/05/2020 INFLUENZA, SPLIT VIRUS, TRIVALENT PF 03/12/2016, 03/07/2015 Influenza Quadrivalent MDCK Preservative Free IM 07/01/2022 Influenza Quadrivalent Preservative Free IM 05/05,02/19/2020,05/22/2017 Influenza Quadrivalent w/ Preservative IM 2020 Influenza, Unspecified Formulation 04/29/2009 Tdap 01/22/2020 Social History Tobacco Use Types Packs/Day Years [...] PM EDT Sexual Orientation Not on file Last Filed Vital Signs Vital Sign Reading Time Taken Comments Blood Pressure 141/89 09/15/2022 8:13 AM EDT Pulse 80 09/15/2022 8:26 AM EDT Temperature 36.9 C (98.5 F) 09/15/2022 8:13 AM EDT Respiratory Rate 20 09/15/2022 8:13 AM EDT Oxygen Saturation 98% 09/15/2022 8:13 AM EDT Inhaled Oxygen Concentration - - Weight 97.5 kg (215 lb) 09/15/2022 8:13 AM EDT Height 175.3 cm (5' 9 ) 09/15/2022 8:13 AM EDT Body Mass Index 31.75 09/15/2022 8:13 AM EDT Plan of Treatment Health Maintenance Due Date Last Done Comments DEPRESSION SCREENING 1989 HEPATITIS C SCREENING 1995 HIV ONE-TIME SCREENING (18-65 YEARS) 1995 COLOGUARD 2022 COLONOSCOPY 2022 COLORECTAL CANCER SCREENING 2022 FIT TEST 2022 FOBT 2022 SIGMOIDOSCOPY 2022 VIRTUAL COLONOSCOPY 2022 LIPID PANEL 10/20/2024 10/21/2023, 08/0 02/2023, 02/08/2023, Additional history exists INFLUENZA VACCINE (#1) 2025 , 05/30/2021, 05/28/2021, Additional history exists COVID-19 VACCINE ( season) 2025 05/18/2021, 11/02/2020, 11/02/2020, Additional history exists SCREENING FOR DIABETES 05/10/2026 05/10/2023 Adult Td,Tdap Booster 01/21/2030 01/22/2020 SMOKING STATUS SCREENING (Once After 26 Yrs) Completed 03/09/2023 HEPATITIS A VACCINES Aged Out No long er eligible based on patient's age to complete this topic HIB VACCINES Aged Out No longer eligi ble based on patient's age to complete this topic MENINGOCOCCAL VACCINES (ACWY) Aged Out No longer eligible based on patient's age to complete this topic MENINGOCOCCAL VACCINES (B) Aged Out N o longer eligible based on patient's age to complete this topic PNEUMOCOCCAL VACCINES (0-49 years) Aged Out No longer eligible based on patient's age to complete this topic Medical Devices Not on file Procedures Procedure Name Priority Date/Time Associated Diagnosis Comments OUTSIDE HDL Routine 02/27/2011 from Last 3 Months or Most Recently Relevant to Health Maintenance Results * (ABNORMAL) Outside HDL (02/27/2011) HDL - External 33(A) 40 - 80 mg/dL Historical Provider LAB BLOOD ORDERABLES Alma l Result from Last 3 Months or Most Recently Relevant to Health Maintenance Insurance [facility] HMO POS HMO POS HMO POS O POS O POS HMO POS [place] [address] [place] [address] [place], [place] [id number] POS Care Teams Turner Splitter Machine Operator Relationship Specialty Start Date End Date Lucas Umana DO PCP - General 04/18/17 Lucas Umana DO [address] [place] [address] Insurance Assigned Provider 10/08/23 Additional Source Comments The information contained in this document represents components of the legal health record. It is not the complete legal health record.[facility]
--- OUTSIDE RECORDS SUMMARY | 2025-04-02 07:55 | XMS_ITS | Data Portability ---
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) [facility] MODERATE MUST MEET 2 OUT OF 3 ELEMENTS: PROBLEMS, DATA OR RISK ELEMENT 1: PROBLEMS ADDRESSED 1 OR MORE CHRONIC ILLNESS WITH EXACERBATION OR 2 OR MORE STABLE CHRONIC ILLNESSES OR 1 UNDIAGNOSED NEW PROBLEM OR 1 ACUTE ILLNESS W/SYMPTOMS OR 1 ACUTE COMPLICATED INJURY ELEMENT 2: DATA MUST MEET 1 OF 3 CATEGORIES CATEGORY 1: REVIEW OF PRIOR EXTERNAL NOTES, REVIEW OF RESULTS, ORDERING OF EACH TEST, ASSESSMENT REQUIRING INDEPENDENT HISTORIAN OR CATEGORY 2: INDEPENDENT INTERPRETATION OF TESTS BY ANOTHER PHYSICIAN OR SPECIALIST OR CATEGORY 3: DISCUSSION OF MGT OR TEST INTERPRETATION W/EXTERNAL PHYSICIAN OR SPECIALIST ELEMENT 3: RISK RISK OF COMPLICATIONS AND/OR MORBIDITY OR MORTALITY OF PATIENT MANAGEMENT PROVIDER MUST THOROUGHLY DOCUMENT EACH ELEMENT THAT IS COVERED Not available 02/21/2024 15:59:43 05/25/2024 05/25/2024 [id number] [place] [id number] (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 FIRER) [facility] MODERATE MUST MEET 2 OUT OF 3 ELEMENTS: PROBLEMS, DATA OR RISK ELEMENT 1: PROBLEMS ADDRESSED 1 OR MORE CHRONIC ILLNESS WITH EXACERBATION OR 2 OR MORE STABLE CHRONIC ILLNESSES OR 1 UNDIAGNOSED NEW PROBLEM OR 1 ACUTE ILLNESS W/SYMPTOMS OR 1 ACUTE COMPLICATED INJURY ELEMENT 2: DATA MUST MEET 1 OF 3 CATEGORIES CATEGORY 1: REVIEW OF PRIOR EXTERNAL NOTES, REVIEW OF RESULTS, ORDERING OF EACH TEST, ASSESSMENT REQUIRING INDEPENDENT HISTORIAN OR CATEGORY 2: INDEPENDENT INTERPRETATION OF TESTS BY ANOTHER PHYSICIAN OR SPECIALIST OR CATEGORY 3: DISCUSSION OF MGT OR TEST INTERPRETATION W/EXTERNAL PHYSICIAN OR SPECIALIST ELEMENT 3: RISK RISK OF COMPLICATIONS AND/OR MORBIDITY OR MORTALITY OF PATIENT MANAGEMENT PROVIDER MUST THOROUGHLY DOCUMENT EACH ELEMENT THAT IS COVERED Not available 05/25/2024 16:35:54 08/29/2024 08/29/2024 [id number] [place] [id number] (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 FIRER) [facility] MODERATE MUST MEET 2 OUT OF 3 ELEMENTS: PROBLEMS, DATA OR RISK ELEMENT 1: PROBLEMS ADDRESSED 1 OR MORE CHRONIC ILLNESS WITH EXACERBATION OR 2 OR MORE STABLE CHRONIC ILLNESSES OR 1 UNDIAGNOSED NEW PROBLEM OR 1 ACUTE ILLNESS W/SYMPTOMS OR 1 ACUTE COMPLICATED INJURY ELEMENT 2: DATA MUST MEET 1 OF 3 CATEGORIES CATEGORY 1: REVIEW OF PRIOR EXTERNAL NOTES, REVIEW OF RESULTS, ORDERING OF EACH TEST, ASSESSMENT REQUIRING INDEPENDENT HISTORIAN OR CATEGORY 2: INDEPENDENT INTERPRETATION OF TESTS BY ANOTHER PHYSICIAN OR SPECIALIST OR CATEGORY 3: DISCUSSION OF MGT OR TEST INTERPRETATION W/EXTERNAL PHYSICIAN OR SPECIALIST ELEMENT 3: RISK RISK OF COMPLICATIONS AND/OR MORBIDITY OR MORTALITY OF PATIENT MANAGEMENT PROVIDER MUST THOROUGHLY DOCUMENT EACH ELEMENT THAT IS COVERED Not available 08/29/2024 16:41:08 12/10/2024 12/10/2024 [id number] [place] [id number] (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 REVIEW OF PRIOR EXTERNAL NOTES/RESULTS, ORDERING OF TEST(S) CATEGORY 2. ASSESSMENT REQUIRING INDEPENDENT HISTORIAN(S) INCLUDE WHO THE HISTORIAN IS AND RELATION TO PT AND WHY PT IS UNABLE TO GIVE COMPLETE HISTORY ELEMENT 3: RISK (LOW) RISK OF COMPLICATIONS AND/OR MORBIDITY OR MORTALITY OF PATIENT MANAGEMENT PROVIDER MUST THOROUGHLY DOCUMENT ALL OF THE ELEMENTS COVERED Not available 12/10/2024 16:21:36 Plan of Treatment Reminders Order Date Submit Date Provider Last Modified By Organization Details Last Modified Time Details Appointments FOLLOW UP 15 2024 04:00P M DR IRAHETA Not available Not available Not available Lab CMP, serum or plasma 2023 024 [facility], [address] [place] [address], [id number], 08/27/2024 11:30:33 CBC 2023 024 [facility], [address] [place] [address], [id number], 05/25/2024 17:11:37 vitamin D, 25-hydrox y, total, serum 2023 [facility], [address] [place] [address], [id number], 05/25/2024 17:11:37 HbA1c (hemoglob in A1c), blood 2023 [facility], [address] [place] [address], [id number], 05/25/2024 16:47:40 lipid panel, blood 2023 [facility], [address] [place] [address], [id number], 05/25/2024 17:11:37 Referral None recorded. Procedures None recorded. Surgeries None recorded. Imaging CT, coronary calcium score 2023 [facility], [facility] [place], [address], 06/22/2024 09:30:22 Medication Orders meloxicam 15 mg tablet 2023 [facility], [address] [place], [address], 02/21/2024 16:01:47 lisinopri l 2.5 mg tablet 2023 [facility], [address] [place], [address], 02/21/2024 16:04:27 glimepiri de 4 mg tablet 2023 024 [facility], [facility], [place], [address], 02/21/2024 16:05:17 Patient TargetsNo targets recorded. Patient Instructions Encounter Date Encounter Id Patient Instructions Last Modified By Organization Details Last Modified Time 02/21/2024 [id number] type 2 diabetes: care instructions Not available 02/21/2024 16:01:42 08/29/2024 [id number] learning about t ype 2 diabetes Not available 08/29/2024 16:40:38 type 2 diabetes: care instructions Not available 08/29/2024 16:40:38 gastroesophageal reflux disease (GERD): care instructions Not available 08/29/2024 16:40:38 Reason for Referral None Reported. Results Created Date Observation Date Name Description Value Unit Range Abnormal Flag Note LastModifiedBy Organization Detail LastModifiedTime 07/17/1907/17/2024 CT, coron clint calci um score No observ ation record ed. [email or web address] Not Available 07/17 14:03:17 Result Notes None recorded. Problems Name Problem SNOMED Code Status Onset Date Resolution Date Notes Provider Name and Address Organization Details Recorded Time Metaboli c syndrome X 877736063 Completed 201705/17/2023 Lucas Iraheta DO [address] [place] [address], [address], [facility] [place] [facility] 3 16:43:27 Impaired fasting glycemia 204992590 Completed 201707/29/2020 [facility] 14:35:03 [facility] l hyperten vignesh 79383490 Completed 201708/30/2018 resolved Removal Reason: has resolved with diet and wgt loss Lucas Iraheta DO [address] [place] [address], [address], [facility] [place] [facility] 9 09:31:31 Obstruct oscar sleep apnea syndrome 45431631 Completed 201704/20/2021 resolved Lucas Iraheta DO [address] [place] [address], [address], [facility] [place] [facility] 1 12:37:57 Gastroes ophageal reflux disease 400621855 Active 2017 Lucas Iraheta DO [address] [place] [address], [address], [facility] [place] [facility] 8 16:43:19 Liver function tests outside referenc e range 115969131 Completed 201807/29/2020 Lucas Iraheta, DO [address] [place] [address], [address], [facility] [place] [facility] 1 15:58:42 Elevated blood-pr essure reading without diagnosi s of hyperten vignesh 170288989 Active 2020 Lucas Iraheta, DO [address] [place] [address], [address], [facility] [place] [facility] 1 16:48:20 Type 2 diabetes mellitus 68780637 Completed 202006/23/2021 Lucas Iraheta DO [address] [place] [address], [address], [facility] [place] [facility] 3 16:53:14 Injury of tendon of the rotator cuff of shoulder 781580688 Active 2021 Lucas Iraheta DO [address] [place] [address], [address], [facility] [place] [facility] 2 16:18:03 Rupture of rotator cuff of right shoulder 9484310839 5620054 Active 2021 Lucas Iraheta DO [address] [place] [address], [address], [facility] [place] [facility] 2 20:36:04 Hypercho lesterol emia 07889895 Active 2022 Lucas Iraheta DO [address] [place] [address], [address], [facility] [place] [facility] 3 16:20:09 Calcific ation of coronary artery 446093259 Active 2022 Lucas Iraheta DO [address] [place] [address], [address], [facility] [place] [facility] 3 14:41:54 Acute bacteria l sinusiti s 69270642 Active 2022 ENRICO BOYD [address] [place] [address], [address], [facility] [place] [facility] 3 14:59:11 Cough 71397145 Active 2022 ENRICO BOYD [address] [place] [address], [address], [facility] [place] [facility] 3 11:33:34 Pain in fingers of bilatera l hands 4720911225 3151131 Active 2022 Lucas Iraheta, [address], [address], [facility] [place] [facility] 3 17:11:01 Type 2 diabetes mellitus 31572647 Active 2022 Lucas Iraheta DO [address] [place] [address], [address], [facility] [place] [facility] 3 16:53:14 Pain of bilatera l hands 5316849832 4577842 Active 2022 Lucas Iraheta DO [address] [place] [address], [address], [facility] 3 16:53:32 Hyperten sive disorder 02801926 Active 2023 Lucas Iraheta DO [address] [place] [address], [address], [facility] [place] [facility] 4 16:29:28 Injury of tendon of the rotator cuff of shoulder 592731661 Active 2023 Lucas Iraheta DO [address] [place] [address], [address], [facility] [place] [facility] 4 16:02:40 Tendinit is of right rotator cuff 6264733258 4236963 Active 2023 Lucas Iraheta DO [address] [place] [address], [address], [place] [facility] 4 15:58:29 Problem Notes None recorded. Procedures Surgical History Date Name Laterality Status Provider Name and Address Organization Details Recorded Time 024 Corticosteroid Injection completed Lucas Iraheta [address] [place], [address], [facility] 05/29/2024 15:58:13 Imaging Results None recorded. Procedure Notes None recorded. Medical Equipment None Reported. Allergies Allergen ID Allergen Name Allergen Category Reaction Reaction Severity Criticality Documentation Date Start Date Code Code System Note Provider Name and Address Organization Details Recorded Time 175 penicilli n V Not available Not available Not available Not available 09/02/2017 7984 [facility] 8 15:43:17 176 erythromy gloria medicatio n Not available Not available Not available 09/02/2017 4053 RxNorm Solange Caesar banda [facility] 8 15:43:29 177 Substance with sulfonami de structure and antibacte rial mechanism of action (substanc e) medicatio n Not available Not available Not available 09/02/2017 05485 8003 SNOMED [facility] 8 15:43:34 7130 metformin medicatio n Not available Not available Not available 02/14/2023 6809 RxNorm Lucas IrahetaDO [address] [place], [address], [facility] 3 17:04:32 Medications Name Sig Start Date Stop Date Status Note LastModified by Organization Details LastModified Time metformin 500 mg tablet Take 1 tablet twice a day by oral route for 30 days. 12/26 completed Not Available Not Available Not Available prednisone 10 mg tablet 10/10 completed Not Available Not Available Not Available azithromyci n 250 mg tablet TAKE 2 TABLETS (500 MG) BY ORAL ROUTE ONCE DAILY FOR 1 DAY THEN 1 TABLET (250 MG) BY ORAL ROUTE ONCE DAILY FOR 4 DAYS 08/30 completed Not Available Not Available Not Available benzonatate 200 mg capsule Take 1 capsule 3 times a day by oral route for 14 days. 11/19 completed Not Available Not Available Not Available meloxicam 15 mg tablet TAKE 1 TABLET BY MOUTH EVERY DAY FOR 30 DAYS active Not Available Not Available No t Available FreeStyle Lancets 28 gauge USE DIRECTED active Not Available Not Available No t Available lovastatin 40 mg tablet TAKE 1 TABLET BY MOUTH ONCE A DAY. 12/26 completed Not Available Not Available Not Available ciprofloxac in 500 mg tablet Take 1 tablet every 12 hours by oral route for 10 days. 11/19 completed Not Available Not Available Not Available baclofen 10 mg tablet Take 1 tablet 3 times a day by oral route as needed. 12/26 completed Not Available Not Available Not Available cephalexin 500 mg capsule 02/26 completed Not Available Not Available Not Available pantoprazol e 40 mg tablet,roge yed release TAKE ONE TABLET BY MOUTH EVERY DAY 2024 active Not Available Not Available Not Avai lable erythromyci n 5 mg/gram (0.5 %) eye ointment 10/10 completed Not Available Not Available Not Available glimepiride 4 mg tablet TAKE 1 TABLET BY MOUTH EVERY DAY active Not Available Not Available No t Available omeprazole 20 mg capsule,del ayed release take 1 capsule by mouth once daily 11/24 completed Not Available Not Available Not Available diclofenac sodium 75 mg tablet,roge yed release TAKE 1 TABLET BY MOUTH TWICE A DAY 02/14 completed Not Available Not Available Not Available codeine 10 mg-guaifene sin 100 mg/5 mL oral liquid Take 10 mL every 4 hours by oral route. 11/19 completed Not Available Not Available Not Available methylpredn isolone 4 mg tablets in a dose pack Take 1 dose pk by oral route. 11/19 completed Not Available Not Available Not Available albuterol sulfate HFA 90 mcg/actuati on aerosol inhaler Inhale 2 puffs every 4 hours by inhalatio n route for 30 days. 05/17 completed Not Available Not Available Not Available lisinopril 2.5 mg tablet Take 1 tablet(s) every day by oral route for 90 days. 2024 active Not Available Not Available Not Avai lable rosuvastati n 10 mg tablet TAKE 1 TABLET BY MOUTH EVERY DAY active Not Available Not Available No t Available Tylenol 10/05 completed Not Available Not Available Not Available FreeStyle Lite Meter kit USE DIRECTED 10/05 completed Not Available Not Available Not Available OneTouch Verio test strips USE1 STRIP EVERY DAY TO CHECK BLOOD SUGAR active Not Available Not Available No t Available Allergy Take once a day. OTC prn 10/05 completed Not Available Not Available Not Available OneTouch Verio Flex Meter USE DIRECTED. *NOT CVD* active Not Available Not Available No t Available Fluarix Quad (PF) 60 mcg (15 mcg x 4)/0.5 mL IM syringe 10/10 completed Not Available Not Available Not Available OneTouch Delica Plus Lancet 33 gauge USE TO CHECK BLOOD SUGAR DAILY active Not Available Not Available No t Available Flucelvax Quad 60 mcg (15 mcg x 4)/0.5 mL intramuscul ar susp 10/22 completed Not Available Not Available Not Available Afluria Qd 2019- (36 mos up)(PF)60 mcg (15 mcg x4)/0.5 mL IM syringe 02/26 completed Not Available Not Available Not Available Flowflex COVID-19 Antigen Home Test kit USE DIRECTED 08/30 completed Not Available Not Available Not Available FreeStyle Vini 3 Eureka use reader 5x per day change every 14 days 2023 active Not Available Not Available Not Avai lable FreeStyle Vini 3 Plus Sensor device USE DIRECTED. active Not Available Not Available No t Available Vitals Date Recorded Body height Body mass index (BMI) Body weight Oxygen saturation Oxygen saturation in Arterial blood by Pulse oximetry Heart rate Systolic And Diastolic Provider Name and Address Organization Details Last Updated DateTime 5 175.26 cm 33.8 kg/m2 045877. 58 g 95 % 95 % 78 /min 126/82 mm[Hg] Juani Josue [facility] 5 16:07:21 Date Recorded Body height Body mass index (BMI) Body weight Heart rate Oxygen saturation Oxygen saturation in Arterial blood by Pulse oximetry Systolic And Diastolic Provider Name and Address Organization Details Last Updated DateTime 4 175.26 cm 34.3 kg/m2 973681. 43 g 64 /min 97 % 97 % 128/78 mm[Hg] Raman Bansal [facility] 4 15:45:47 Date Recorded Body height Body mass index (BMI) Body weight Heart rate Oxygen saturation Oxygen saturation in Arterial blood by Pulse oximetry Systolic And Diastolic Provider Name and Address Organization Details Last Updated DateTime 4 175.26 cm 34.3 kg/m2 183236. 43 g 73 /min 95 % 95 % 120/76 mm[Hg] Lucas Iraheta, DO [address] [place], [address], [facility] 4 16:08:10 Social History Question Answer Notes LastModified by Organizat ion Details LastModified Time Tobacco Smoking Status Never Smoker Not Available [employer] 05/06/2020 03:36:23 What Was The Date Of Your Most Recent Tobacco Screening? 12/10/2024 [email or web address] Information not available 12/10/2024 Sex: Unknown Functional Status Question Answer Note LastModified by Organization D etails LastModified Time Do you or have you ever used any other forms of tobacco or nicotine? No [email or web address] Information not available 07/25/2023 Mental Status None recorded. Family History Nothing Reported. Medical History No medical history recorded. Immunizations Vaccine Type Date Status Note Provider Nam e and Address Organization Details Recorded Time Influenza, split virus, quadrivalent, preservative 1 completed Yasmin banda [facility] 07/25/2023 15:44:34 Influenza, split virus, quadrivalent, preservative 0 completed Yasmin banda [facility] 07/25/2023 15:44:34 Tdap 0 completed Arianna banda [facility] Internal [facility] 12/23/2020 09:51:04 COVID-19, mRNA, LNP-S, PF, 30 mcg/0.3 mL dose 1 completed Yasmin banda [facility] 07/25/2023 15:44:34 COVID-19, mRNA, LNP-S, PF, 30 mcg/0.3 mL dose 1 completed Yasmin banda [facility] 07/25/2023 15:44:34 Past Encounters Encounter ID Performer Location Encounter Start Date Encounter Closed Date Diagnosis/Indication Diagnosis SNOMED-CT Code Diagnosis ICD10 Code Diagnosis IMO Codes Diagnosis Note [id number] Lucas Iraheta DO [facility] [address] [facility], [place] [facility] [place] [address] 10/10/2017 16:07:11 10/10/2017 17:12:40 Impaired fasting glycemia 373846592 R73.01 last a1c was 5.5 fasting gluc >110 f so is doing ok overalll states could be better w diet and was not careful told and discussed re low carb etc Obstructiv e sleep apnea syndrome 87634732 G47.33 stable with treatment for kenji had surgery Essential hypertension 68569490 I10 home bp have been excellent [id number] Lucas Iraheta DO [facility] [address] [facility], [place] [facility] [place] [address] 04/19/2018 16:17:25 04/24/2018 08:20:24 Metabolic syndrome X 620510740 E88.81 will need to cont to monitor his lab and will follow Essential hypertension 10108093 I10 home bp have been excellent Impaired f asting glycemia 918846459 R73.01 last a1c was 5.8 fasting gluc >110 f so is doing ok overalll states could be better w diet and was not careful told and discussed re low carb etc [id number] Lucas Iraheta DO [facility] [address] [facility] [facility] [place] [address] 08/22/2018 09:42:31 08/22/2018 13:47:40 Impaired fasting glycemia 802632336 R73.01 Essential hypertension 46644470 I10 Pneumonia 860739456 J18. 9 rest out of work today/avelino rrow fluids go to ED if sx worsen CXR if doesn't resolve in 2 weeks tyelenol [id number] Lucas Iraheta DO [facility] [address] [facility], [place] [facility] [place] [address] 2018 09:06:46 2018 09:56:32 Gastroesophageal reflux disease 423757954 K21.9 i am worried that insurance will not protect him by covering his PPI meds for gerd will need to watch closely Impaired f asting glycemia 072494550 R73.01 last a1c was 6.6 fasting gluc >140 so is not doing ok overall states could be better w diet and was not careful told and discussed re low carb etc and that he will be in DM category by next visit carbs are his big prob rechk in 3 months Essential hypertension 93791782 I10 home bp have been excellent fair here cont to monitor Pneumonia 331434009 J18. 9 has slowly resolved since on zpak finished 4 days ago Lucas Iraheta [facility] [address] [facility] [address] 11/24/2018 15:58:15 11/24/2018 16:21:42 Obstructive sleep apnea syndrome 24187834 G47.33 stable with treatment for kenji had surgery Impaired f asting glycemia 342010664 R73.01 last a1c was 6.5 fasting gluc > now his a1c is 6.1 and he is much improved relates he has cut down on portions carbs are his big prob and he is being careful rechk in 3 months Liver func tion tests outside reference range 861191722 R94.5 presumed from the lovastatin rechk in 2-3 mo [id number] Lucas Iraheta DO [facility] [address] [facility],[place] [address] 01/31/2019 16:04:43 01/31/2019 17:00:07 Impaired fasting glycemia 798490967 R73.01 last a1c was 6.1 fasting gluc > now his a1c is 6.1 and he is still improved relates he has cut down on portions but has not been too carefull carbs are his big prob and he is being careful rechk in 3 months Liver func tion tests outside reference range 939277711 R94.5 presumed from the lovastatin rechk level is 63 so we are stable Obstructiv e sleep apnea syndrome 13381106 G47.33 stable with treatment for kenji had surgery Gastroesop hageal reflux disease 386785328 K21.9 i am worried that insurance will not protect him by covering his PPI meds for gerd will need to watch closely [id number] Lucas Iraheta DO [facility] Internal Medicine [address] [facility] [address] [address] 05/04/2019 16:11:36 05/04/2019 16:54:40 Impaired fasting glycemia 583952642 R73.01 last a1c was 6.1 fasting gluc > now his a1c is 6.1 and he is still improved relates he has cut down on portions but has not been too carefull carbs are his big prob we will start metformin 500mg to prevent the onset of diabetes rechk in 3 months Obstructiv e sleep apnea syndrome 64481011 G47.33 stable with treatment for kenji had surgery Injury of flexor tendon of hand 753661325 S66.801A will refer to ortho to have this evaluated [id number] Lucas Iraheta [facility] Medicine [address] [facility],[place] [address] 08/06/2019 15:56:07 08/06/2019 17:02:21 Degeneration of cervical intervertebral disc 20284210 M50.30 Neck pain has gotten significan tly worse Having radiating sharp pain down arms, restricted ROM turning L Impaired f asting glycemia 328966148 R73.01 A1C 6.0 with 500 metformin Continue current tx Gastroesop hageal reflux disease 018540034 K21.9 Has been well controlled with Panto Cervical radiculopathy 25920546 M54.12 Paraesthes ia, motor tone loss in L arm [id number] Lucas Iraheta [facility] [address] [facility],[place] [address] 09/18/2019 16:08:15 09/18/2019 16:45:08 Impaired fasting glycemia 812013480 R73.01 last A1C 6.0 with 500 metformin Continue current tx will get recheck and see him in another month Degenerati ve cervical spinal stenosis 311625562 M48.02 have offered muscle relaxant at bedtime will call if needed he will need PT but this will be delayed told to start at home doing neck exercises [id number] Lucas Iraheta [facility] [address] [facility],[place] [address] 10/23/2019 15:50:34 10/23/2019 16:18:11 Impaired fasting glycemia 545513082 R73.01 last A1C is 5.9 was 6.0 with 500 metformin Continue current tx will get recheck and see him in another month Liver func tion tests outside reference range [id number] R94.5 presumed from the lovastatin rechk level is 60 was 63 so we are stable [id number] Lucas Iraheta DO [facility] Internal Medicine [address] [facility],[place] [address] 02/27/2020 15:55:56 02/27/2020 16:45:50 Impaired fasting glycemia 509594755 R73.01 last A1C is 5.9 was 6.0 with 500 metformin Continue current tx will get recheck and see him in another month Liver func tion tests outside reference range 236047051 R94.5 presumed from the lovastatin rechk level is 60 was 63 so we will hold the lovastat for the next 2 weeks and to check the lab in 3 weeks Gastroesop hageal reflux disease 752594949 K21.9 Has been well controlled with Panto [id number] Lucas Iraheta DO [facility] Internal Medicine [address] [facility],[place] [address] 07/29/2020 08:46:25 07/29/2020 16:39:38 Impaired fasting glycemia 906141112 R73.01 last A1C is 5.8 OFF METFORMIN! !and was 5.9 was 6.0 with 500 metformin Continue no tx now and we will rech in december will get recheck and see him in another 5 month Liver func tion tests outside reference range 799691214 R94.5 now lfts are completely normal off the cholestero l med his LDL is on ly 116 ( from 106 on med)\ so we will continue to hold the statin and rech his lab in december Obstructiv e sleep apnea syndrome 34740404 G47.33 stable with treatment for kenji had surgery and has had no recurrence and recent wgt loss has def helped Gastroesop hageal reflux disease 814604874 K21.9 Has been well controlled with Pantoprazo le and is actually better now that he is eating with portion control as discussed [id number] Lucas Iraheta [facility] Internal Medicine [address] [facility],[place] [address] 12/26/2020 15:49:34 12/26/2020 17:06:58 Gastroesophageal reflux disease 443590123 K21.[place] Has been well controlled with Pantoprazo le and is actually better now that he is eating with portion control as discussed Metabolic syndrome X 237 519209 E88.81 will need to cont to monitor his lab and will follownote d that the LDL is up to 137 [id number] Lucas Iraheta [facility] Internal Medicine [address] [facility],[place] [address] 04/01/2021 08:21:21 04/01/2021 16:36:52 Metabolic syndrome X 276868348 E88.81 will need to cont to monitor his lab and will follownote d that the LDL is up to 137 [id number] Lucas Iraheta [facility] Internal Medicine [address] [facility],[place] [address] [facility] [place] [place] [address] 04/20/2021 11:57:54 04/20/2021 15:07:21 Obstructive sleep apnea syndrome 23312218 G47.33 stable with treatment for kenji had surgery and has had no recurrence and recent wgt loss has def helped Gastroesop hageal reflux disease 871292247 K21.[place] Has been well controlled with Pantoprazo le and is actually better now that he is eating with portion control as discussed Elevated blood-pressure reading without diagnosis of hypertension 397705368 R03.0 stable and is current Type 2 alexandria betes mellitus 40434007 E11.9 long discussion he will cont on track and his impressive results will cont and he will be rechk in jun Lucas Iraheta [facility] Internal Medicine [address] [facility],[place] [address] 06/23/2021 08:21:32 06/24/2021 14:20:57 Elevated blood-pressure reading without diagnosis of hypertension 866220144 R03.0 stable and is current Gastroesop hageal reflux disease 933949785 K21.9 Has been well controlled with Pantoprazo le and is actually better now that he is eating with portion control as discussed Metabolic syndrome X 237 882303 E88.81 he has eliminated the diagnosis of diabetes a1c 5.7has lost 30# and is doing greatawe will hav him rechk a1c in late september [id number] Lucas Iraheta [facility] Internal Medicine [address] [facility], [place] [address] 10/05/2021 16:04:47 10/06/2021 13:39:43 Metabolic syndrome X 974511682 E88.81 he has eliminated the diagnosis of diabetes a1c 5.8 was 5.7 doing wonderful and kept weight offhas lost 30# and is doing greatawe will hav him rechk a1c in late september Elevated blood-pressure reading without diagnosis of hypertension 427446510 R03.0 stable and is current [id number] Lucas Iraheta [facility] Internal Medicine [address] [facility], [place] [address] 03/02/2022 15:35:44 03/02/2022 16:25:33 Active or passive immunization 959342934 Z23 Advised due for Nzoutp62 and flu shot Injury of tendon of the rotator cuff of shoulder 923442149 S46.001A [id number] Lucas Iraheta [facility] Internal Medicine [address] [facility], [place] [address] 03/12/2022 08:13:02 03/15/2022 08:52:55 Elevated blood-pressure reading without diagnosis of hypertension 473942194 R03.0 stable and is currentwe will have him rechk cholestero l in jul Injury of tendon of the rotator cuff of shoulder 836273120 S46.001A xray neg kif when off nsaids his pain vcomes back will need mriu Gastroesop hageal reflux disease 099123246 K21.9 Has been well controlled with Pantoprazo le and is actually better now that he is eating with portion control as discussed Metabolic syndrome X 237 749303 E88.81 he has eliminated the diagnosis of diabetes a1c 5.8 was 5.7 doing wonderful and kept weight offhas kept of weight lost 30# and is doing greatawe will hav him rechk a1c in late september [id number] Lucas Iraheta [facility] Internal Medicine [address] [facility],[place] [address] 08/03/2022 08:10:20 08/04/2022 11:50:02 Elevated blood-pressure reading without diagnosis of hypertension 292119890 R03.0 stable and is currentwe will have him rechk mark anthony webb in mariano Gastroesop hageal reflux disease 153948527 K21.9 Has been well controlled with Pantoprazo le and is actually better now that he is eating with portion control as discussed Impaired f asting glycemia 603441098 R73.01 last A1C is 6.2 still OFF METFORMIN he admits to his diet no too good Continue no tx now and we will rech in december will get recheck and see him in another 5 month Hypercholesterolemia 136 82425 E78.00 reviewed in detail and we discussed getting the CT calcium Family his tory of premature coronary heart disease 785442202 Z82.49 given his cholest and family hx we will follow Injury of tendon of the rotator cuff of shoulder 631180738 S46.001A cont to follow with ortho and will be discussing surgery [id number] DO Tori Murdock Internal Medicine [address] [facility],[place] rom[place] Raiza [facility] [place] [address] 2022 13:44:46 2022 14:54:21 Calcification of coronary artery 980245246 I25.84 long discussion re need for tx will start rosuvastat keep an eye on home bp and record Injury of tendon of the rotator cuff of shoulder 659097508 S46.001A cont to follow with ortho and will be discussing surgery Metabolic syndrome X 237 486229 E88.81 he has eliminated the diagnosis of diabetes a1c 5.8 was 5.7 doing wonderful and kept weight offhas kept of weight lost 30# and is doing greatawe will hav him rechk a1c in late september /october [id number] DO Tori Murdock Internal Medicine [address] [facility], amita Eastman [facility] [place] [address] 09/17/2022 09:32:46 09/20/2022 10:31:18 Acute bacterial sinusitis 21573274 J01.01 will set up with medosmani and corona given the length of his symptoms and now presenting with a fever [id number] DO Tori Murdock Internal Medicine [address] [facility],[place] [address] [facility] [place] [address] 11/19/2022 15:07:53 11/19/2022 16:06:39 Elevated blood-pressure reading without diagnosis of hypertension 712555541 R03.0 stable and is currentwe will have him rechk cholestero l in mariano Impaired f asting glycemia 897724446 R73.01 last A1C is still 6.2 was 6.2 still OFF METFORMIN he admits to his diet no too good Continue no tx now and we will rech in december will get recheck and see him in another 5 month Hypercholesterolemia 136 60225 E78.00 reviewed in detail with LDL of 70!! [id number] Lucas Iraheta, [facility] Internal Medicine [address] [facility],[place] [address] 02/14/2023 15:58:17 02/15/2023 09:43:58 Calcification of coronary artery 453207658 I25.84 long discussion re need for tx will start rosuvastat keep an eye on home bp and record Hypercholesterolemia 136 21123 E78.00 reviewed in detail with LDL of 70!! Injury of tendon of the rotator cuff of shoulder 420744120 S46.001A cont to follow with ortho and will be discussing surgery Impaired f asting glycemia 748928349 R73.01 last A1C is up to 6.5 was 6.2 still OFF METFORMIN he admits to his diet no too good at times Continue no tx now and we will rech in may will get recheck and see him in another 3 month Elevated blood-pressure reading without diagnosis of hypertension 229185954 R03.0 stable and is currenthom e bps are in upper 120's over 80's Pain in fi ngers of bilateral hands 0862718963 4476268 M79.644 M79.645 [id number] Lucas Iraheta [facility] Internal Medicine [address] [facility],[place] [address] 05/17/2023 15:40:48 05/17/2023 17:00:05 Calcification of coronary artery 472649303 I25.84 long discussion re need for tx will start rosuvastat keep an eye on home bp and record Hypercholesterolemia 136 69677 E78.00 reviewed in detail with LDL of 70!! Type 2 alexandria betes mellitus 47722591 E11.9 long discussion he will cont on track and his impressive results will cont and he will be rechk in dec Pain of bi lateral hands 8695363218 6172356 M79.641 will check lab [id number] Lucas Iraheta [facility] Internal Medicine [address] [facility],[place] [address] 07/25/2023 15:42:47 07/25/2023 16:37:10 Type 2 diabetes mellitus without complication 283425948 E11.9 is now uncontroll ed Hypercholesterolemia 136 53786 E78.00 reviewed in detail with LDL of 70!! Pain of bi lateral hands 1494711721 2803273 M79.641 will check lab which is normal Hypertensive disorder 38 758867 I10 will start at a low dose [id number] Lucas Iraheta [facility] Internal Medicine [address] [facility],[place] [address] 11/01/2023 15:46:23 11/02/2023 08:16:18 Hypercholesterolemia 81861307 E78.00 reviewed in detail with LDL of 70!! Hypertensive disorder 38 091128 I10 will start at a low dose Type 2 alexandria betes mellitus 54228539 E11.9 long discussion he will cont on track and his impressive results will cont and he will be rechk in decgiven he has been increasing and is doing more testingwe will provide with samples of freestyle vini and pt will tyr and get bacik to us in a few weeks [id number] Lucas Iraheta [facility] Internal Medicine [address] [facility],[place] [address] 02/21/2024 15:27:19 02/21/2024 16:13:48 Depression screening 835198554 Z13.31 neg Type 2 alexandria betes mellitus without complication 472989379 E11.9 doing fantastic with gluc a1c is 5.8 Hypertensive disorder 38 053014 I10 will start at a low dose and cont lisinopril Injury of tendon of the rotator cuff of shoulder 601460110 S46.001A cont to follow with ortho and will be discussing surgerysho ulder not too bad but the neck is sore [id number] Lucas Iraheta [facility] Internal Medicine [address] [facility],[place] [address] 05/25/2024 16:01:56 05/28/2024 08:13:59 Hypercholesterolemia 79816132 E78.00 reviewed in detail with LDL of 70!! Hypertensive disorder 38 007887 I10 will start at a low dose and cont lisinopril Type 2 alexandria betes mellitus 42116968 E11.9 a1c is 6.1 was 5.7 still doing very well overall long discussion he will cont on track and his impressive results will cont and he will be rechk in decgiven he has been increasing and is doing more testingwe will provide with samples of freestyle vini and pt will tyr and get bacik to us in a few weeks Calcificat ion of coronary artery 057138480 I25.84 long discussion re need for tx will start rosuvastat keep an eye on home bp and record Injury of tendon of the rotator cuff of shoulder 022793452 S46.001A cont to follow with ortho and will be discussing surgerysho ulder bad but the neck is sorewill set up mary inj for shoulder [id number] Lucas Iraheta [facility] Internal Medicine [address] [facility], [place] [employer] [place] [facility] [place] [address] 05/29/2024 15:12:00 05/29/2024 16:08:23 Tendinitis of right rotator cuff 4157727771 [id number] M67.813 mary well dada [id number] Lucas Iraheta [facility] Internal Medicine [address] [facility], [place] [address] 08/29/2024 08:22:18 08/29/2024 16:46:52 Type 2 diabetes mellitus 70778313 E11.9 a1c is 5.9 was 6.1 was 5.7 still doing very well overall long discussion he will cont on track and his impressive results will cont and he will be rechk in decgiven he has been increasing and is doing more testingwe will provide with samples of freestyle vini and pt will tyr and get bacik to us in a few weeks Hypertensive disorder 38 500320 I10 will start at a low dose and cont lisinopril Elevated blood-pressure reading without diagnosis of hypertension 805498081 R03.0 stable and is currenthom e bps are in upper 120's over 80's Gastroesop hageal reflux disease 774892715 K21.9 Has been well controlled with Pantoprazo le and is actually better now that he is eating with portion control as discussed [id number] Lucas Iraheta, [facility] Internal Medicine [address] [facility] [address],[place] [address] 12/10/2024 15:53:10 12/11/2024 09:57:23 Depression screening 387902055 Z13.31 neg Hypercholesterolemia 136 84733 E78.00 reviewed in detail with LDL of 70!! Hypertensive disorder 38 696211 I10 will start at a low dose and cont lisinopril Type 2 alexandria betes mellitus 98285550 E11.9 a1c is 5.9 was 6.1 was 5.7 still doing very well overall long discussion he will cont on track and his impressive results will cont and he will be rechk in decgiven he has been increasing and is doing more testingwe will provide with samples of freestyle vini and pt will tyr and get bacik to us in a few weeks Health Concerns Section Related Observation LastModified by Organization Detai ls LastModified Time None Recorded Concern Status LastModified by Organization Details LastModified Time None Recorded Advance Directives Directive None Recorded Payers Insurance Date Sequence Insurance Name Policy Number Policy Ruiz Covered Member ID Ruiz Member ID Guarantor Name 12/10/2024 1 [facility] [place] [id number] Magdaleno Jacob [id number] Magdaleno Jacob Notes Date Note Type Note Provider Name and Address Organization Details Recorded Time 4 text/htm l Care Management - DiabetesReported by PatientHPIFor self care, patient reportsseeing eye doctor yearly for dilated eye exam,checking feet regularly,normal range of home blood sugars (in the low 100s), andno side effects from medications. For associated symptoms, patient reportssymptoms are usually well controlled,no fatigue,no dizziness,no excessive sweating,no headaches,no confusion,no increased thirst,no increased appetite,no increased urination,no blurred vision,no numbness of feet, andno calluses on feet.has been keeping a close eye on his glucose readings a1c 5.8has been keeping him honest and he pays more attentionROS as noted in the HPI here for rosa and is doing well since october bp has been excellent with avg 122/80 Lucas Jimenez Lyndsay, DO [address] [place], [address], [facility] [place] [facility] 02/21/2024 16:06:19 4 text/htm l ROS as noted in the HPI here for rosa and is doing ok overallno major issues Lucas Jimenez Lyndsay DO [address] [place], [address], [facility] [place] [facility] 05/25/2024 16:43:10 4 text/htm l ROS as noted in the HPI here for right shoulder mary inj Lucas Jimenez Lyndsay DO [address] [place], [address], [facility] [place] [facility] 05/29/2024 16:04:49 5 text/htm l ROS as noted in the HPI patient is evaluated via tele/video assessment per patient consentduring current pandemic here of rosa and is doing ok a1c is 5.9and is doing well with his weight careful; with portions down to 215 Lucas SummersWest Iraheta DO [address] [place], [address], [facility] [place] [facility] 08/29/2024 16:42:12 5 text/htm l Care Management - HypertensionReported by PatientHPIFor self care, patient reportsnot under emotional stress. For severity, patient reportssymptoms are improvinganddoes not interfere with daily activities. For associated symptoms, patient reportsno dizziness,no lightheadedness,no chest pain,no shortness of breath,no palpitations,no edema,no calf muscle cramps,no blurred vision,no confusion,no headaches, andno fatigue. Care Management - DiabetesReported by PatientHPIFor self care, patient reportsseeing eye doctor yearly for dilated eye exam,checking feet regularly,normal range of home blood sugars (in the low 100s), andno side effects from medications. For associated symptoms, patient reportssymptoms are usually well controlled,no fatigue,no dizziness,no excessive sweating,no headaches,no confusion,no increased thirst,no increased appetite,no increased urination,no blurred vision,no numbness of feet, andno calluses on feet.ROS as noted in the HPI patient is evaluated via tele/video assessment per patient consentduring current pandemicdoing ok neck is still very sore and doingthe epidurals here of rechk and is doing ok a1c is 5.9and is doing well with his weight careful; with portions down to 215 Lucas Iraheta, [address] [facility], [place], [address], [facility] 12/10/2024 16:25:34
[2025-04-02 13:53] LABS: Hemoglobin A1C 195.1826 umol/L; Total Hemoglobin (HGBA1C) 3948.5987 umol/L
== END 2025-04-02 07:46 | disposition home or self-care (01) ==
LOC: HO.MANLDS 07:45
PROVIDERS: Visit Provider Internal Medicine
DX: E11.9 Type 2 diabetes mellitus without complications (principal)
CPT/HCPCS: 36415; 83036

== ENCOUNTER 2025-07-02 07:57 | Outpatient (REF) | payer BC, SELFPAY ==
--- OUTSIDE RECORDS SUMMARY | 2025-07-02 09:22 | XMS_ITS | Encounter Summary ---
Author Organization [facility] Address [address] [place] [address] Phone Care Team Providers Care Technician Automated Equipment Name Role Phone Lucas Umana Primary Care Provider [phone] DarrylLucas booth DO Unavailable Lucas Umana DO Primary Care Provider [phone] Encounter Details Date Type Department Care Team (Late st Contact Info) Description 03/31/2022 Procedure Pass [facility], [address] [address] Social History Tobacco Use Types Packs/Day Years [...] on filedocumented in this encounter Care Teams Technician Automated Equipment Relationship Specialty Start Date End Date Lucas Umana DO PCP - General 04/18/17 05/09/25 Lucas Umana DO [address] [place] [address] PCP - General Internal Medicine 05/10/25 Lucas Umana DO [address] [place] [address] [email or web address] Insurance Assigned Provider 10/08/23 documented as of this encounter Additional Source Comments The information contained in this document represents components of the legal health record. It is not the complete legal health record.[facility]
--- OUTSIDE RECORDS SUMMARY | 2025-07-02 09:22 | XMS_ITS | Encounter Summary ---
Author Organization [facility] Address [address] [place] [address] Phone Care Team Providers Care Bond Writer Name Role Phone Lucas Umana DO Primary Care Provider [phone] Lucas Umana DO Unavailable Lucas Umana DO Primary Care Provider [phone] Encounter Details Date Type Department Care Team (Late st Contact Info) Description 04/03/2025 Procedure Pass [facility], [address] [address] Social History Tobacco Use Types Packs/Day Years [...] on filedocumented in this encounter Care Teams Bond Writer Relationship Specialty Start Date End Date Lucas Umana DO [email or web address] PCP - General 04/18/17 05/09/25 Lucas Umana DO [address] [place] [address] PCP - General Internal Medicine 05/10/25 Lucas Umana DO [address] [place] [address] [email or web address] Insurance Assigned Provider 10/08/23 documented as of this encounter Additional Source Comments The information contained in this document represents components of the legal health record. It is not the complete legal health record.[facility]
--- OUTSIDE RECORDS SUMMARY | 2025-07-02 09:22 | XMS_ITS | Encounter Summary ---
Author Organization [facility] Address [address] [place] [address] Phone Care Team Providers Care Parking Meter Installer Name Role Phone Lucas Umana DO Primary Care Provider [phone] DarrylLucas booth DO Unavailable Lucas Umana DO Primary Care Provider [phone] Encounter Details Date Type Department Care Team (Late st Contact Info) Description 08/10/2019 Procedure Pass [facility], [address] [address] Social History Tobacco Use Types Packs/Day Years [...] on filedocumented in this encounter Care Teams Parking Meter Installer Relationship Specialty Start Date End Date Lucas Umana DO PCP - General 04/18/17 05/09/25 Lucas Umana DO [address] [place] [address] PCP - General Internal Medicine 05/10/25 Lucas Umana DO [address] [place] [address] [email or web address] Insurance Assigned Provider 10/08/23 documented as of this encounter Additional Source Comments The information contained in this document represents components of the legal health record. It is not the complete legal health record.[facility]
--- OUTSIDE RECORDS SUMMARY | 2025-07-02 09:22 | XMS_ITS | Encounter Summary ---
Author Organization [facility] Address [address] [place] [address] Phone Care Team Providers Care Senior Systems Developer Name Role Phone Lucas Umana DO Primary Care Provider [phone] Bigda, Lucas Summers DO Unavailable Bigda, Lucas Summers DO Primary Care Provider [phone] Encounter Details Date Type Department Care Team (Late st Contact Info) Description 03/21/2020 Transcribe Orders Virtual Department [address] [place] [address] Lyndsay, Lucas Summers, DO [address] [facility] [place] [address] [place] [address] [email or web address] Abnormal LFTs (Primary Dx) Social History Tobacco [...] LFTs documented in this encounter Care Teams Senior Systems Developer Relationship Specialty Start Date End Date Lucas Umana DO [email or web address] PCP - General 04/18/17 05/09/25 Lucas Umana DO [address] [place] [address] PCP - General Internal Medicine 05/10/25 Lucas Umana DO [address] [place] [address] [email or web address] Insurance Assigned Provider 10/08/23 documented as of this encounter Additional Source Comments The information contained in this document represents components of the legal health record. It is not the complete legal health record.[facility]
--- OUTSIDE RECORDS SUMMARY | 2025-07-02 09:22 | XMS_ITS | Encounter Summary ---
Author Organization [facility] Address [address] [place] [phone] Phone Care Team Providers Care Director Mission Name Role Phone Lucas Umana Primary Care Provider [phone] Bigda, Lucas Summers DO Unavailable Bigda, Lucas A DO Primary Care Provider [phone] Reason for Referral * MRI/CAT Scan - Closed Specialty Diagnoses / Procedures Referred By Baudilio crews Referred To Contact Radiology Diagnoses Other cervical disc degeneration, mid-cervical region, unspecified level Procedures MRI Cervical Spine CHG MRI, CERV SPINE CHG MRI, CERV SPINE CONTRAST CHG MRI, CERV SPINE COMBO Jim Theodore DO [address] [place] [address] Phone: tel: fax: [email or web address] Referral ID Status Reason Start Date Expiration Date Visits Re quested Visits Authorized [id number] Closed 05/10/2025 06/09/2025 1 1 Encounter Details Date Type Department Care Team (Latest Contact Info) Description 04/03/2025 Transcribe Orders Virtual Department [address] [place] [id number] Jim Theodore DO [address] [place] [phone] [email or web address] Other cervical disc degeneration, mid-cervical region, unspecified level (Primary Dx) Social History Tobacco Use Types [...] MRI CERVICAL SPINE (NEURO) FOCUS WITHOUT CONTRAST (05/10/2025 9:36 PM EST) Anatomical Region Laterality Modality C-spine Magnetic Resonan ce 05/14/2025 1:15 PM EST Impressions 05/14/2025 1:18 PM EST 1. Mild cervical degenerative change appears similar to August 16, 2019. Narrative 05/14/2025 1:18 PM EST MRI CERVICAL SPINE (NEURO) FOCUS WITHOUT CONTRAST Referring clinician's provided indication for this examination in Epic: Outside Radiology Order; disc degeneartion TECHNIQUE: MRI CERVICAL SPINE (NEURO) FOCUS WITHOUT CONTRAST Multi-sequence, multi-planar MRI of the cervical spine was performed without intravenous contrast. COMPARISON: MRI cervical spine August 16, 2019 FINDINGS: CERVICAL SPINE: Alignment and Vertebrae: There is reversal the normal cervical lordosis. No spondylolisthesis. Marrow: No bone marrow replacing lesion. Discs and Endplates: There is mild intervertebral disc height loss at C4-5. Spinal Cord: No spinal cord compression or signal abnormality. Soft Tissue: Normal. No prevertebral edema. Findings by level: C2-C3: No spinal canal or neural foraminal narrowing. C3-C4: No spinal canal or neural foraminal narrowing. C4-C5: There is a broad-based disc protrusion without spinal canal narrowing. There is mild bilateral neural foraminal narrowing similar the prior study. C5-C6: There is a broad-based disc protrusion without spinal canal or neural foraminal narrowing. C6-C7: No spinal canal or neural foraminal narrowing. C7-T1: No spinal canal or neural foraminal narrowing. Procedure Note Jonathon Panchal DO - 05/14/2025 MRI CERVICAL SPINE (NEURO) FOCUS WITHOUT CONTRAST Referring clinician's provided indication for this examination in Epic:Outside Radiology Order; disc degeneartion TECHNIQUE: MRI CERVICAL SPINE (NEURO) FOCUS WITHOUT CONTRAST Multi-sequence, multi-planar MRI of the cervical spine was performedwithout intravenous contrast. COMPARISON: MRI cervical spine August 16, 2019 FINDINGS: CERVICAL SPINE: Alignment and Vertebrae: There is reversal the normal cervical lordosis.No spondylolisthesis. Marrow: No bone marrow replacing lesion. Discs and Endplates: There is mild intervertebral disc height loss atC4-5. Spinal Cord: No spinal cord compression or signal abnormality. Soft Tissue: Normal. No prevertebral edema. Findings by level: C2-C3: No spinal canal or neural foraminal narrowing. C3-C4: No spinal canal or neural foraminal narrowing. C4-C5: There is a broad-based disc protrusion without spinal canalnarrowing. There is mild bilateral neural foraminal narrowing similar theprior study. C5-C6: There is a broad-based disc protrusion without spinal canal orneural foraminal narrowing. C6-C7: No spinal canal or neural foraminal narrowing. C7-T1: No spinal canal or neural foraminal narrowing. IMPRESSION: 1. Mild cervical degenerative change appears similar to August. Jim Theodore DO IMG MR XSPECIALTY Final Resu lt documented in this encounter Visit Diagnoses Diagnosis Other cervical disc degeneration, mid-cervical region, unspecified level- Primary Other cervical disc degeneration, mid-cervical region, unspecified level documented in this encounter Care Teams Director Mission Relationship Specialty Start Date End Date Lucas Umana DO [email or web address] PCP - General 04/18/17 05/09/25 Lucas Umana DO [address] [place] [address] PCP - General Internal Medicine 05/10/25 Lucas Umana DO [address] [place] [address] [email or web address] Insurance Assigned Provider 10/08/23 documented as of this encounter Additional Source Comments The information contained in this document represents components of the legal health record. It is not the complete legal health record.[facility]
--- OUTSIDE RECORDS SUMMARY | 2025-07-02 09:22 | XMS_ITS | Continuity of Care Document ---
Author Organization [facility] Address [address] [place] [address] Assessment Encounter Date Assessment Date Assessment LastModified by Organization Details LastModified Time 04/09/2025 04/09/2025 [id number] [place] [id number] (RN TELEHEALTH) MDM MODERATE MUST MEET 2 OUT OF [...] EACH ELEMENT THAT IS COVERED Not available 04/09/2025 15:56:19 Plan of Treatment Reminders Order Date Submit Date Provider Last Modified By Organization Details Last Modified Time Details Appointments FOLLOW UP 15 2025 04:15P M DR IRAHETA Not available Not available Not available Lab microalbu min, urine 2024 025 [facility], [address] [place] [address], [id number], 04/09/2025 16:07:03 CMP, serum or plasma 2024 025 [facility], [address] [place] [address], [address], 04/09/2025 16:07:03 hemoglobi n A1c, QN, blood 2024 025 [facility], [address] [place] [address], [place], [address], 04/09/2025 16:07:03 Referral None recorded. Procedures None recorded. Surgeries None recorded. Imaging None recorded. Medication Orders None recorded. Patient TargetsNo targets recorded. Patient InstructionsNo instructions recorded. Reason for Referral None Reported. Results Created Date Observation Date Name Description Value Unit Range Abnormal Flag Note LastModifiedBy Organization Detail LastModifiedTime Result Notes None recorded. Problems Name Problem SNOMED Code Status Onset Date Resolution Date Notes Provider Name and Address Organization Details Recorded Time Metaboli c syndrome X 954069901 Completed 201705/17/2023 Lucas Iraheta DO [address] [place] [address], [phone], [facility] 3 16:43:27 Impaired fasting glycemia 764496102 Completed 201707/29/2020 [facility] 4 14:35:03 [facility] hyperten vignesh 62545426 Completed 201708/30/2018 resolved Removal Reason: has resolved with diet and wgt loss Lucas Iraheta DO [address] [place] [address], [address], [facility] 9 09:31:31 Obstruct oscar sleep apnea syndrome 29648971 Completed 201704/20/2021 resolved Lucas Iraheta DO [address] [place] [address], [address], [facility] 1 12:37:57 Gastroes ophageal reflux disease 062656132 Active 2017 Lucas Iraheta DO [address] [place] [address], [address], [facility] 8 16:43:19 Liver function tests outside referenc e range 330863918 Completed 201807/29/2020 Lucas MelinaWest Iraheta, DO [address] [place] [address], [address], [facility] 1 15:58:42 Elevated blood-pr essure reading without diagnosi s of hyperten vignesh 425917090 Active 2020 Lucas Tony Lyndsay, DO [address] [place] [address], [address], [facility] 1 16:48:20 Type 2 diabetes mellitus 98707936 Completed 202006/23/2021 Lucas SummersWest Lyndsay, DO [address] [place] [address], [address], [facility] 5 16:03:14 Injury of tendon of the rotator cuff of shoulder 362569059 Active 2021 Lucas Iraheta, DO [address] [place] [address], [address], [facility] 2 16:18:03 Rupture of rotator cuff of right shoulder 4565601186 6330113 Active 2021 Lucas Iraheta, DO [address] [place] [address], [address], [facility] 2 20:36:04 Hypercho lesterol emia 55171207 Active 2022 Lucas Iraheta, DO [address] [place] [address], [address], [facility] 3 16:20:09 Calcific ation of coronary artery 861480665 Active 2022 Lucas Iraheta, DO [address] [place] [address], [address], [facility] 3 14:41:54 Acute bacteria l sinusiti s 82034489 Active 2022 ENRICO BOYD [address] [place] [address], [address], [facility] 3 14:59:11 Cough 61005179 Active 2022 ENRICO BOYD [address] [place], [address], [facility] 3 11:33:34 Pain in fingers of bilatera l hands 2805825253 4864573 Active 2022 Lucas Iraheta, [address], [address], [facility] 3 17:11:01 Type 2 diabetes mellitus 03920204 Active 2022 Lucas Iraheta [address], [address], [facility] 5 16:03:14 Pain of bilatera l hands 4700444772 3111485 Active 2022 Lucas Iraheta [address], [address], [facility] 3 16:53:32 Hyperten sive disorder 42459663 Active 2023 Lucas Iraheta [address], [address], [facility] 5 16:03:14 Injury of tendon of the rotator cuff of shoulder 733064268 Active 2023 Lucas Iraheta DO [address] [place] [address], [address], [facility] 4 16:02:40 Tendinit is of right rotator cuff 7439117428 4837097 Active 2023 Lucas Iraheta [address], [address], [facility] 4 15:58:29 Problem Notes None recorded. Procedures Surgical History Date Name Laterality Status Provider Name and Address Organization Details Recorded Time 024 Corticosteroid Injection completed Lucas Iraheta [address], [address], [facility] 05/29/2024 15:58:13 Imaging Results None recorded. Procedure Notes None recorded. Medical Equipment None Reported. Allergies Allergen ID Allergen Name Allergen Category Reaction Reaction Severity Criticality Documentation Date Start Date Code Code System Note Provider Name and Address Organization Details Recorded Time 175 penicilli n V Not available Not available Not available Not available 09/02/2017 7984 [facility] 15:43:17 176 erythromy gloria medicatio n Not available Not available Not available 09/02/2017 4053 [facility] 15:43:29 177 Substance with sulfonami de structure and antibacte rial mechanism of action (substanc e) medicatio n Not available Not available Not available 09/02/2017 71377 8003 [facility] 15:43:34 7130 metformin medicatio n Not available Not available Not available 02/14/2023 6809 RxNorm Lucas Iraheta, DO [address] [place], [address], [facility] 3 17:04:32 Medications Name Sig Start [...] Available Not Available glimepiride 4 mg tablet Take 1 tablet(s) every day by oral route for 90 days. 2024 active Not Available Not Available Not Avai lable omeprazole 20 mg capsule,del ayed release take [...] Available Not Available lisinopril 2.5 mg tablet TAKE 1 TABLET BY MOUTH EVERY DAY active Not Available Not Available No t Available rosuvastati n 10 mg tablet TAKE 1 [...] Available Not Available Not Available Afluria Qd (36 mos up)(PF)60 mcg (15 mcg x4)/0.5 mL IM syringe 02/26 completed Not Available Not Available Not Available Flowflex COVID-19 Antigen Home Test kit USE DIRECTED 08/30 completed Not Available Not Available Not Available FreeStyle Vini 3 [place] use reader 5x per day change every 14 days 2023 active Not Available Not Available Not Avai lable FreeStyle Vini 3 Plus Sensor device USE DIRECTED. active Not Available Not Available No t Available Vitals Date Recorded Systolic And Diastolic Provider Name and Address Organization Details Last Updated DateTime 04/09/2025 120/82 mm[Hg] Raiza Murdock O [address] [facility], [place], [address], [facility] 04/09/2025 15:56:48 Date Recorded Body height Body mass index (BMI) Body weight Heart rate Oxygen saturation Provider Name and Address Organization Details Last Updated DateTime 04/09/2025 175.26 cm 34.3 kg/m2 457737.5 9 g 90 /min 95 % Dulce Maria Wei [facility] 15:55:28 Social History Question Answer Notes LastModified by Organizat ion Details LastModified Time Tobacco Smoking Status Never Smoker Not Available [employer] 05/06/2020 03:36:23 What Was The Date Of Your Most Recent Tobacco Screening? 04/09/2025 [email or web address] Information not available 04/09/2025 Sex: Unknown Functional Status Question Answer Note LastModified by Organization D etails LastModified Time Do you or have you ever used any other forms of tobacco or nicotine? No [email or web address] Information not available 07/25/2023 Mental Status None recorded. Family History Nothing Reported. Medical History No medical history recorded. Immunizations Vaccine Type Date Status Note Provider Matt hodgson and Address Organization Details Recorded Time Influenza, split virus, quadrivalent, preservative 1 completed Yasmin banda, [facility] 07/25/2023 15:44:34 Influenza, split virus, quadrivalent, preservative 0 completed Yasmin banda, [facility] 07/25/2023 15:44:34 Tdap 0 completed Arianna banda, [facility] 12/23/2020 09:51:04 COVID-19, mRNA, LNP-S, PF, 30 mcg/0.3 mL dose 1 completed Yasmin banda, [facility] 07/25/2023 15:44:34 COVID-19, mRNA, LNP-S, PF, 30 mcg/0.3 mL dose 1 completed Yasmin banda, [facility] 07/25/2023 15:44:34 Past Encounters Encounter ID Performer Location Encounter Start Date Encounter Closed Date Diagnosis/Indication Diagnosis SNOMED-CT Code Diagnosis ICD10 Code Diagnosis IMO Codes Diagnosis Note [id number] Lucas Iraheta [facility] [address] [facility],[place] [address] 04/09/2025 15:49:17 04/09/2025 16:08:46 Depression screening 476387806 Z13.31 neg Hypertensive disorder 38 423966 I10 cont lisinopril Type 2 alexandria betes mellitus 07448462 E11.9 a1c is 6.7 was 6.2 still doing very well overall priorlong discussion he will cont on track and [...] by Organization Details LastModified Time None Recorded Payers Encounter Date Sequence Insurance Name Policy Number Policy Ruiz Covered Member ID Ruiz Member ID Guarantor Name 04/09/2025 1 [facility] [id number] Magdaleno Jacob [id number] Magdaleno Jacob Notes Date Note Type Note Provider Name and Address Organization Details Recorded Time 5 text/htm l Care Management - HypertensionReported [...] on feet.ROS as noted in the HPI here for rechk dm relates not as active as usualrelates that he had a nerve block in neck that helped for 10 dayshas mri ordered to [facility] disc dsa1c is 6.7 was 6.2 admits to less active and diet fair Lucas Iraheta, DO [address] [facility], [place], [address], [facility] 04/09/2025 16:06:48
--- OUTSIDE RECORDS SUMMARY | 2025-07-02 09:22 | XMS_ITS | Data Portability ---
Author Organization [facility] Telehealth Patient Home Address [address] [place] [address] Assessment Encounter Date Assessment Date Assessment LastModified by Organization Details LastModified Time 05/25/2024 05/25/2024 [id number] [place] [id number] (HOSPITALIST NOCTURNIST PHYSICIAN) [facility] MODERATE MUST MEET 2 OUT OF [...] COVERED Not available 05/25/2024 16:35:54 08/29/2024 08/29/2024 [id number] [place] [id number] (HOSPITALIST NOCTURNIST PHYSICIAN) [facility] MODERATE MUST MEET 2 OUT OF [...] COVERED Not available 08/29/2024 16:41:08 12/10/2024 12/10/2024 [id number] [place] [id number] (HOSPITALIST NOCTURNIST PHYSICIAN) : MDM LOW MUST MEET 2 OF [...] THE ELEMENTS COVERED Not available 12/10/2024 16:21:36 04/09/2025 04/09/2025 [id number] [place] [id number] (HOSPITALIST NOCTURNIST PHYSICIAN) MDM MODERATE MUST MEET 2 OUT OF [...] available Lab microalbu min, urine 2024 [id number] [facility], [address] [place] [address], [place], [address], 04/09/2025 16:07:03 CMP, serum or plasma 2024 025 [facility], [address] [place] [address], [address], 04/09/2025 16:07:03 hemoglobi n A1c, QN, blood 2024 [id number] [facility], [address] [place] [address], [address], 04/09/2025 16:07:03 CMP, serum or plasma 2023 [facility], [address] [place] [address], [address], 08/27/2024 11:30:33 CBC 2023 [facility], [address] [place] [address], [address], 05/25/2024 17:11:37 vitamin D, 25-hydrox y, total, serum 2023 [facility], [address] [place] [address], [place], [address], 05/25/2024 17:11:37 HbA1c (hemoglob in A1c), blood 2023 [facility], [address] [place] [address], [address], 05/25/2024 16:47:40 lipid panel, blood 2023 [facility], [address] [place] [address], [address], 05/25/2024 17:11:37 Referral None recorded. Procedures None recorded. Surgeries None recorded. Imaging CT, coronary calcium score 2023 [facility], [address] [place] [address], [address], 06/22/2024 09:30:22 Medication Orders None recorded. Patient TargetsNo targets recorded. Patient Instructions Encounter Date Encounter Id Patient Instructions Last Modified By Organization Details Last Modified Time 08/29/2024 [id number] learning about t ype 2 diabetes Not available 08/29/2024 16:40:38 type 2 diabetes: care instructions Not available 08/29/2024 16:40:38 gastroesophageal reflux disease (GERD): care instructions [email or web address] Not available 08/29/2024 16:40:38 Reason for Referral None Reported. Results Created Date Observation Date Name Description Value Unit Range Abnormal Flag Note LastModifiedBy Organization Detail LastModifiedTime 07/17/1907/17/2024 CT, coron clint calci um score No observ ation record ed. [email or web address] Not Available 07/17 14:03:17 Result Notes None recorded. Problems Name Problem SNOMED Code Status Onset Date Resolution Date Notes Provider Name and Address Organization Details Recorded Time Metaboli c syndrome X 826907498 Completed 201705/17/2023 Lucas Iraheta DO [address] [place] [address], [address], [facility] 3 16:43:27 Impaired fasting glycemia 060157529 Completed 201707/29/2020 [facility] [place] [facility] 4 14:35:03 [facility] hyperten vignesh 66695530 Completed 201708/30/2018 resolved Removal Reason: has resolved with diet and wgt loss Lucas Iraheta DO [address] [place] [address], [address], [facility] 9 09:31:31 Obstruct oscar sleep apnea syndrome 76668575 Completed 201704/20/2021 resolved Lucas Iraheta DO [address] [place] [address], [address], [facility] 1 12:37:57 Gastroes ophageal reflux disease 744847234 Active 2017 Lucas Iraheta DO [address] [place] [address], [address], [facility] 8 16:43:19 Liver function tests outside referenc e range 916129842 Completed 201807/29/2020 Lucas Iraheta, DO [address] [place] [address], [address], [facility] 1 15:58:42 Elevated blood-pr essure reading without diagnosi s of hyperten vignesh 720381059 Active 2020 Lucas Iraheta, DO [address] [place] [address], [address], [facility] 1 16:48:20 Type 2 diabetes mellitus 89341037 Completed 202006/23/2021 Lucas Iraheta, DO [address] [place] [address], [address], [facility] 5 16:03:14 Injury of tendon of the rotator cuff of shoulder 522776825 Active 2021 Lucas Andrewsemmy, DO [address] [place] [address], [address], [facility] 2 16:18:03 Rupture of rotator cuff of right shoulder 7095708675 5244654 Active 2021 Lucas Iraheta, DO [address] [place] [address], [address], [facility] 2 20:36:04 Hypercho lesterol emia 35229633 Active 2022 Lucas Tony Andrewsemmy, DO [address] [place] [address], [address], [facility] 3 16:20:09 Calcific ation of coronary artery 423476543 Active 2022 Lucas Tony Lyndsay, [address], [address], [facility] 3 14:41:54 Acute bacteria l sinusiti s 32948616 Active 2022 ENRICO BOYD [address] [place] [address], [address], [facility] 3 14:59:11 Cough 10367092 Active 2022 ENRICO BOYD [address] [place] [address], [address], [facility] 3 11:33:34 Pain in fingers of bilatera l hands 6936190531 0230352 Active 2022 Lucas Iraheta, DO [address] [place] [address], [address], [facility] 3 17:11:01 Type 2 diabetes mellitus 66238263 Active 2022 Lucas Iraheta [address], [address], [facility] 5 16:03:14 Pain of bilatera l hands 6020588143 2111080 Active 2022 Lucas Iraheta, DO [address] [place] [address], [address], [facility] 3 16:53:32 Hyperten sive disorder 83858661 Active 2023 Lucas Iraheta, DO [address] [place] [address], [address], [facility] 5 16:03:14 Injury of tendon of the rotator cuff of shoulder 935409091 Active 2023 Lucas Iraheta DO [address] [place] [address], [address], [facility] 4 16:02:40 Tendinit is of right rotator cuff 4666143550 1186996 Active 2023 Lucas Iraheta [address], [address], [facility] 4 15:58:29 Problem Notes None recorded. Procedures Surgical History Date Name Laterality Status Provider Name and Address Organization Details Recorded Time 024 Corticosteroid Injection completed Lucas Iraheta, [address] [place], [address], [facility] 05/29/2024 15:58:13 Imaging Results None recorded. Procedure Notes None recorded. Medical Equipment None Reported. Allergies Allergen ID Allergen Name Allergen Category Reaction Reaction Severity Criticality Documentation Date Start Date Code Code System Note Provider Name and Address Organization Details Recorded Time 175 penicilli n V Not available Not available Not available Not available 09/02/2017 7984 RxNorm Solange Caesar banda [facility] 8 15:43:17 176 erythromy gloria medicatio n Not available Not available Not available 09/02/2017 4053 RxNorm Solange Caesar banda [facility] 8 15:43:29 177 Substance with sulfonami de structure and antibacte rial mechanism of action (substanc e) medicatio n Not available Not available Not available 09/02/2017 19187 8003 SN[facility]ED [facility] 15:43:34 7130 metformin medicatio n Not available Not available Not available 02/14/2023 6809 RxNorm Lucas Iraheta, [address] [place], [address], [facility] 3 17:04:32 Medications Name Sig Start [...] Not Available Not Available FreeStyle Vini 3 [place] use reader 5x per day change every 14 days 2023 active Not Available Not Available Not Avai lable FreeStyle Vini 3 Plus Sensor device USE DIRECTED. active Not Available Not Available No t Available Vitals Date Recorded Body height Body mass index (BMI) Body weight Oxygen saturation Heart rate Systolic And Diastolic Provider Name and Address Organization Details Last Updated DateTime 5 175.26 cm 33.8 kg/m2 606361. 58 g 95 % 78 /min 126/82 mm[Hg] MARISA HUITRON [facility] 5 16:07:21 Date Recorded Systolic And Diastolic Provider Name and Address Organization Details Last Updated DateTime 04/09/2025 120/82 mm[Hg] Raiza Murdock [address] [facility], [place], [address], [facility] 04/09/2025 15:56:48 Date Recorded Body height Body mass index (BMI) Body weight Heart rate Oxygen saturation Provider Name and Address Organization Details Last Updated DateTime 04/09/2025 175.26 cm 34.3 kg/m2 340099.5 9 g 90 /min 95 % Dulce Maria Wei [facility] 5 15:55:28 Date Recorded Body height Body mass index (BMI) Body weight Heart rate Oxygen saturation Systolic And Diastolic Provider Name and Address Organization Details Last Updated DateTime 4 175.26 cm 34.3 kg/m2 755518. 43 g 73 /min 95 % 120/76 mm[Hg] Lucas SummersWest Andrewsemmy, DO [address] [place], [address], [facility] 4 16:08:10 Social History Question [...] virus, quadrivalent, preservative 1 completed Yasmin banda [facility] 07/25/2023 15:44:34 Influenza, split virus, quadrivalent, preservative 0 completed Yasmin banda [facility] 07/25/2023 15:44:34 Tdap 0 completed Arianna banda [facility] 12/23/2020 09:51:04 COVID-19, mRNA, LNP-S, PF, 30 mcg/0.3 mL dose 1 completed Yasmin banda [facility] 07/25/2023 15:44:34 COVID-19, mRNA, LNP-S, PF, 30 mcg/0.3 mL dose 1 completed Yasmin banda [facility] 07/25/2023 15:44:34 Past Encounters Encounter ID Performer Location Encounter Start Date Encounter Closed Date Diagnosis/Indication Diagnosis SNOMED-CT Code Diagnosis ICD10 Code Diagnosis IMO Codes Diagnosis Note [id number] Lucas Iraheta DO [facility] [address] [facility] [address] 10/10/2017 16:07:11 10/10/2017 17:12:40 Impaired fasting glycemia 634948240 R73.01 last a1c was 5.5 fasting gluc >110 f so is doing ok overalll states could be better w diet and was not careful told and discussed re low carb etc Obstructiv e sleep apnea syndrome 99581671 G47.33 stable with treatment for kenji had surgery Essential hypertension 04552195 I10 home bp have been excellent [id number] Lucas Iraheta DO [facility] [address] [facility],[place] [address] 04/19/2018 16:17:25 04/24/2018 08:20:24 Metabolic syndrome X 899747216 E88.81 will need to cont to monitor his lab and will follow Essential hypertension 03537411 I10 home bp have been excellent Impaired f asting glycemia 786175343 R73.01 last a1c was 5.8 fasting gluc >110 f so is doing ok overalll states could be better w diet and was not careful told and discussed re low carb etc [id number] Lucas Iraheta DO [facility] [address] [facility],[place] [address] 08/22/2018 09:42:31 08/22/2018 13:47:40 Impaired fasting glycemia 270445356 R73.01 Essential hypertension 73732108 I10 Pneumonia 638332690 J18. 9 rest out of work today/avelino rrow fluids go to ED if sx worsen CXR if doesn't resolve in 2 weeks tyelenol [id number] Lucas Iraheta DO [facility] [address] [facility],[place] [address] 2018 09:06:46 2018 09:56:32 Gastroesophageal reflux disease 318454680 K21.9 i am worried that insurance will not protect him by covering his PPI meds for gerd will need to watch closely Impaired f asting glycemia 502917630 R73.01 last a1c was 6.6 fasting gluc >140 so is not doing ok overall states could be better w diet and was not careful told and discussed re low carb etc and that he will be in DM category by next visit carbs are his big prob rechk in 3 months Essential hypertension 30233912 I10 home bp have been excellent fair here cont to monitor Pneumonia 916046634 J18. 9 has slowly resolved since on zpak finished 4 days ago Lucas Iraheta [facility] [address] [facility],[place] [address] 11/24/2018 15:58:15 11/24/2018 16:21:42 Obstructive sleep apnea syndrome 50149975 G47.33 stable with treatment for kenji had surgery Impaired f asting glycemia 422428933 R73.01 last a1c was 6.5 fasting gluc > now his a1c is 6.1 and he is much improved relates he has cut down on portions carbs are his big prob and he is being careful rechk in 3 months Liver func tion tests outside reference range 677551265 R94.5 presumed from the lovastatin rechk in 2-3 mo [id number] Lucas Iraheta DO [facility] [address] [facility],[place] [address] [facility] [place] [address] 01/31/2019 16:04:43 01/31/2019 17:00:07 Impaired fasting glycemia 766675536 R73.01 last a1c was 6.1 fasting gluc > now his a1c is 6.1 and he is still improved relates he has cut down on portions but has not been too carefull carbs are his big prob and he is being careful rechk in 3 months Liver func tion tests outside reference range 739893666 R94.5 presumed from the lovastatin rechk level is 63 so we are stable Obstructiv e sleep apnea syndrome 45921629 G47.33 stable with treatment for kenji had surgery Gastroesop hageal reflux disease 031468024 K21.9 i am worried that insurance will not protect him by covering his PPI meds for gerd will need to watch closely [id number] Lucas Iraheta DO [facility] [address] [facility] [address],[place] [address] 05/04/2019 16:11:36 05/04/2019 16:54:40 Impaired fasting glycemia 229704397 R73.01 last a1c was 6.1 fasting gluc > now his a1c is 6.1 and he is still improved relates he has cut down on portions but has not been too carefull carbs are his big prob we will start metformin 500mg to prevent the onset of diabetes rechk in 3 months Obstructiv e sleep apnea syndrome 82478792 G47.33 stable with treatment for kenji had surgery Injury of flexor tendon of hand 316968688 S66.801A will refer to ortho to have this evaluated [id number] Lucas Iraheta [facility] [address] [facility],[place] [address] 08/06/2019 15:56:07 08/06/2019 17:02:21 Degeneration of cervical intervertebral disc 36744951 M50.30 Neck pain has gotten significan tly worse Having radiating sharp pain down arms, restricted ROM turning L Impaired f asting glycemia 992283707 R73.01 A1C 6.0 with 500 metformin Continue current tx Gastroesop hageal reflux disease 172961771 K21.9 Has been well controlled with Panto Cervical radiculopathy 77008050 M54.12 Paraesthes ia, motor tone loss in L arm [id number] Lucas Iraheta [facility] [address] [facility],[place] [address] 09/18/2019 16:08:15 09/18/2019 16:45:08 Impaired fasting glycemia 789032841 R73.01 last A1C 6.0 with 500 metformin Continue current tx will get recheck and see him in another month Degenerati ve cervical spinal stenosis 795223546 M48.02 have offered muscle relaxant at bedtime will call if needed he will need PT but this will be delayed told to start at home doing neck exercises [id number] Lucas Iraheta [facility] [address] [facility],[place] [address] 10/23/2019 15:50:34 10/23/2019 16:18:11 Impaired fasting glycemia 775293504 R73.01 last A1C is 5.9 was 6.0 with 500 metformin Continue current tx will get recheck and see him in another month Liver func tion tests outside reference range 594020405 R94.5 presumed from the lovastatin rechk level is 60 was 63 so we are stable [id number] Lucas Iraheta [facility] [address] [facility] [address] 02/27/2020 15:55:56 02/27/2020 16:45:50 Impaired fasting glycemia 492549439 R73.01 last A1C is 5.9 was 6.0 with 500 metformin Continue current tx will get recheck and see him in another month Liver func tion tests outside reference range 986615777 R94.5 presumed from the lovastatin rechk level is 60 was 63 so we will hold the lovastat for the next 2 weeks and to check the lab in 3 weeks Gastroesop hageal reflux disease 997845885 K21.9 Has been well controlled with Panto [id number] Lucas Iraheta [facility] [address] [facility] [address] 07/29/2020 08:46:25 07/29/2020 16:39:38 Impaired fasting glycemia 994300610 R73.01 last A1C is 5.8 OFF METFORMIN! !and was 5.9 was 6.0 with 500 metformin Continue no tx now and we will rech in december will get recheck and see him in another 5 month Liver func tion tests outside reference range 461480984 R94.5 now lfts are completely normal off the cholestero l med his LDL is on ly 116 ( from 106 on med)\ so we will continue to hold the statin and rech his lab in december Obstructiv e sleep apnea syndrome 19255945 G47.33 stable with treatment for kenji had surgery and has had no recurrence and recent wgt loss has def helped Gastroesop hageal reflux disease 137160634 K21.9 Has been well controlled with Pantoprazo le and is actually better now that he is eating with portion control as discussed [id number] Lucas Iraheta [facility] [address] [facility] [address] [address] 12/26/2020 15:49:34 12/26/2020 17:06:58 Gastroesophageal reflux disease 283403396 K21.9 Has been well controlled with Pantoprazo le and is actually better now that he is eating with portion control as discussed Metabolic syndrome X 237 321054 E88.81 will need to cont to monitor his lab and will follownote d that the LDL is up to 137 [id number] Lucas Iraheta [facility] [address] [facility],[place] [address] 04/01/2021 08:21:21 04/01/2021 16:36:52 Metabolic syndrome X 490572953 E88.81 will need to cont to monitor his lab and will follownote d that the LDL is up to 137 [id number] Lucas Iraheta [facility] [address] [facility],[place] [address] 04/20/2021 11:57:54 04/20/2021 15:07:21 Obstructive sleep apnea syndrome 21324670 G47.33 stable with treatment for kenji had surgery and has had no recurrence and recent wgt loss has def helped Gastroesop hageal reflux disease 764995654 K21.9 Has been well controlled with Pantoprazo le and is actually better now that he is eating with portion control as discussed Elevated blood-pressure reading without diagnosis of hypertension 869170197 R03.0 stable and is current Type 2 alexandria betes mellitus 06342926 E11.9 long discussion he will cont on track and his impressive results will cont and he will be rechk in jun Lucas Iraheta [facility] [address] [facility],[place] [address] 06/23/2021 08:21:32 06/24/2021 14:20:57 Elevated blood-pressure reading without diagnosis of hypertension 538054731 R03.0 stable and is current Gastroesop hageal reflux disease 512794014 K21.9 Has been well controlled with Pantoprazo le and is actually better now that he is eating with portion control as discussed Metabolic syndrome X 237 468335 E88.81 he has eliminated the diagnosis of diabetes a1c 5.7has lost 30# and is doing greatawe will hav him rechk a1c in late september [id number] Lucas Iraheta [facility] [address] [facility],[place] [facility] [place] [address] 10/05/2021 16:04:47 10/06/2021 13:39:43 Metabolic syndrome X 992718929 E88.81 he has eliminated the diagnosis of diabetes a1c 5.8 was 5.7 doing wonderful and kept weight offhas lost 30# and is doing greatawe will hav him rechk a1c in late september Elevated blood-pressure reading without diagnosis of hypertension 496024430 R03.0 stable and is current [id number] Lucas Iraheta [facility] [address] [facility], [place] [place] [facility] [place] [address] 03/02/2022 15:35:44 03/02/2022 16:25:33 Active or passive immunization 595774801 Z23 Advised due for Epocmv35 and flu shot Injury of tendon of the rotator cuff of shoulder 665371757 S46.001A [id number] Lucas Iraheta [facility] [address] [facility],[place] [facility] [place] [address] 03/12/2022 08:13:02 03/15/2022 08:52:55 Elevated blood-pressure reading without diagnosis of hypertension 389862973 R03.0 stable and is currentwe will have him rechk cholestero l in jul Injury of tendon of the rotator cuff of shoulder 349545215 S46.001A xray neg kif when off nsaids his pain vcomes back will need mriu Gastroesop hageal reflux disease 518564130 K21.9 Has been well controlled with Pantoprazo le and is actually better now that he is eating with portion control as discussed Metabolic syndrome X 237 618966 E88.81 he has eliminated the diagnosis of diabetes a1c 5.8 was 5.7 doing wonderful and kept weight offhas kept of weight lost 30# and is doing greatawe will hav him rechk a1c in late september [id number] Lucas Iraheta [facility] [address] [facility],[place] [address] 08/03/2022 08:10:20 08/04/2022 11:50:02 Elevated blood-pressure reading without diagnosis of hypertension 242832661 R03.0 stable and is currentwe will have him rechk mark anthony webb in mariano Gastroesop hageal reflux disease 319230378 K21.9 Has been well controlled with Pantoprazo le and is actually better now that he is eating with portion control as discussed Impaired f asting glycemia 572445983 R73.01 last A1C is 6.2 still OFF METFORMIN he admits to his diet no too good Continue no tx now and we will rech in december will get recheck and see him in another 5 month Hypercholesterolemia 136 12159 E78.00 reviewed in detail and we discussed getting the CT calcium Family his tory of premature coronary heart disease 171271016 Z82.49 given his cholest and family hx we will follow Injury of tendon of the rotator cuff of shoulder 082248716 S46.001A cont to follow with ortho and will be discussing surgery [id number] Lucas Iraheta [facility] [address] [facility],[place] [address] 2022 13:44:46 2022 14:54:21 Calcification of coronary artery 097998771 I25.84 long discussion re need for tx will start rosuvastat keep an eye on home bp and record Injury of tendon of the rotator cuff of shoulder 901332395 S46.001A cont to follow with ortho and will be discussing surgery Metabolic syndrome X 237 887617 E88.81 he has eliminated the diagnosis of diabetes a1c 5.8 was 5.7 doing wonderful and kept weight offhas kept of weight lost 30# and is doing greatawe will hav him rechk a1c in late september /october [id number] Lucas Iraheta DO [facility] Internal Medicine [address] [facility],[place] [address] 09/17/2022 09:32:46 09/20/2022 10:31:18 Acute bacterial sinusitis [id number] J01.01 will set up with medrol and cipro given the length of his symptoms and now presenting with a fever [id number] Lucas Iraheta DO [facility] Internal Medicine [address] [facility],[place] [address] 11/19/2022 15:07:53 11/19/2022 16:06:39 Elevated blood-pressure reading without diagnosis of hypertension [id number] R03.0 stable and is currentwe will have him rechk cholestero l in mariano Impaired f asting glycemia 120206763 R73.01 last A1C is still 6.2 was 6.2 still OFF METFORMIN he admits to his diet no too good Continue no tx now and we will rech in december will get recheck and see him in another 5 month Hypercholesterolemia 136 36433 E78.00 reviewed in detail with LDL of 70!! [id number] Lucas Iraheta [facility] Internal Medicine [address] [facility],[place] [address] 02/14/2023 15:58:17 02/15/2023 09:43:58 Calcification of coronary artery 702167111 I25.84 long discussion re need for tx will start rosuvastat keep an eye on home bp and record Hypercholesterolemia 136 90915 E78.00 reviewed in detail with LDL of 70!! Injury of tendon of the rotator cuff of shoulder 767385843 S46.001A cont to follow with ortho and will be discussing surgery Impaired f asting glycemia 089753490 R73.01 last A1C is up to 6.5 was 6.2 still OFF METFORMIN he admits to his diet no too good at times Continue no tx now and we will rech in may will get recheck and see him in another 3 month Elevated blood-pressure reading without diagnosis of hypertension 794506007 R03.0 stable and is currenthom e bps are in upper 120's over 80's Pain in fi ngers of bilateral hands [id number] 0689154 M79.644 M79.645 [id number] Lucas Iraheta [facility] Internal Medicine [address] [facility],[place] [address] 05/17/2023 15:40:48 05/17/2023 17:00:05 Calcification of coronary artery 765773810 I25.84 long discussion re need for tx will start rosuvastat keep an eye on home bp and record Hypercholesterolemia 136 13688 E78.00 reviewed in detail with LDL of 70!! Type 2 alexandria betes mellitus 61744959 E11.9 long discussion he will cont on track and his impressive results will cont and he will be rechk in dec Pain of bi lateral hands 7959583813 4056513 M79.641 will check lab [id number] Lucas Iraheta [facility] Internal Medicine [address] [facility],[place] [address] 07/25/2023 15:42:47 07/25/2023 16:37:10 Type 2 diabetes mellitus without complication 013478808 E11.9 is now uncontroll ed Hypercholesterolemia 136 87630 E78.00 reviewed in detail with LDL of 70!! Pain of bi lateral hands 9346618782 0397996 M79.641 will check lab which is normal Hypertensive disorder 38 656165 I10 will start at a low dose [id number] Lucas Iraheta [facility] Internal Medicine [address] [facility],[place] [address] 11/01/2023 15:46:23 11/02/2023 08:16:18 Hypercholesterolemia 94126506 E78.00 reviewed in detail with LDL of 70!! Hypertensive disorder 38 525687 I10 will start at a low dose Type 2 alexandria betes mellitus 29159422 E11.9 long discussion he will cont on track and his impressive results will cont and he will be rechk in decgiven he has been increasing and is doing more testingwe will provide with samples of freestyle vini and pt will tyr and get bacik to us in a few weeks [id number] Lucas Iraheta [facility] Internal Medicine [address] [facility],[place] [address] 02/21/2024 15:27:19 02/21/2024 16:13:48 Depression screening 173114517 Z13.31 neg Type 2 alexandria betes mellitus without complication 508005816 E11.9 doing fantastic with gluc a1c is 5.8 Hypertensive disorder 38 913864 I10 will start at a low dose and cont lisinopril Injury of tendon of the rotator cuff of shoulder 969451380 S46.001A cont to follow with ortho and will be discussing surgerysho ulder not too bad but the neck is sore [id number] Lucas Iraheta [facility] Internal Medicine [address] [facility],[place] [address] 05/25/2024 16:01:56 05/28/2024 08:13:59 Hypercholesterolemia 71992798 E78.00 reviewed in detail with LDL of 70!! Hypertensive disorder 38 814486 I10 will start at a low dose and cont lisinopril Type 2 alexandria betes mellitus 23317554 E11.9 a1c is 6.1 was 5.7 still [...] few weeks Calcificat ion of coronary artery 737710275 I25.84 long discussion re need for tx will start rosuvastat keep an eye on home bp and record Injury of tendon of the rotator cuff of shoulder 865518317 S46.001A cont to follow with ortho and will be discussing surgerysho ulder bad but the neck is sorewill set up mary inj for shoulder [id number] Lucas Iraheta [facility] Internal Medicine [address] [facility], ite [facility] [place] [address] 05/29/2024 15:12:00 05/29/2024 16:08:23 Tendinitis of right rotator cuff 2140596499 [id number] M67.813 mary well dada [id number] Lucas Iraheta [facility] Internal Medicine [address] [facility] [address] [address] 08/29/2024 08:22:18 08/29/2024 16:46:52 Type 2 diabetes mellitus 12226202 E11.9 a1c is 5.9 was 6.1 was [...] in a few weeks Hypertensive disorder 38 509397 I10 will start at a low dose and cont lisinopril Elevated blood-pressure reading without diagnosis of hypertension 540231897 R03.0 stable and is currenthom e bps are in upper 120's over 80's Gastroesop hageal reflux disease 634800073 K21.9 Has been well controlled with Pantoprazo le and is actually better now that he is eating with portion control as discussed [id number] Lucas Iraheta [facility] Internal Medicine [address] [facility],[place] [address] 12/10/2024 15:53:10 12/11/2024 09:57:23 Depression screening 837262958 Z13.31 neg Hypercholesterolemia 136 04970 E78.00 reviewed in detail with LDL of 70!! Hypertensive disorder 38 327192 I10 will start at a low dose and cont lisinopril Type 2 alexandria betes mellitus 17883108 E11.9 a1c is 5.9 was 6.1 was 5.7 still doing very well overall long discussion he will cont on track and his impressive results will cont and he will be rechk in decgiven he has been increasing and is doing more testingwe will provide with samples of freestyle vini and pt will tyr and get bacik to us in a few weeks [id number] Lucas Iraheta [facility] Internal Medicine [address] [facility],[place] [address] 04/09/2025 15:49:17 04/09/2025 16:08:46 Depression screening 118298479 Z13.31 neg Hypertensive disorder 38 963424 I10 cont lisinopril Type 2 alexandria betes mellitus 98607527 E11.9 a1c is 6.7 was 6.2 still [...] Member ID Ruiz Member ID Guarantor Name 04/06/2025 1 [facility]: [facility] [id number] Magdaleno Jacob [id number] Magdaleno Jacob Notes Date Note Type Note Provider Name and Address Organization Details Recorded Time 4 text/htm l ROS as noted in the HPI here for rosa and is doing ok overallno major issues Lucas IrahetaDO [address] [place], [address], [facility] Internal Medicine 05/25/2024 16:43:10 4 text/htm l ROS as noted in the HPI here for right shoulder mary inj Lucas Jimenez DO Lyndsay [address] [place], [address], [facility] Internal Medicine 05/29/2024 16:04:49 5 text/htm l ROS as noted in the HPI patient is evaluated via tele/video assessment per patient consentduring current pandemic here of rechk and is doing ok a1c is 5.9and is doing well with his weight careful; with portions down to 215 Lucas SummersWest Iraheta DO [address] [place], [address], [facility] Internal Medicine 08/29/2024 16:42:12 5 text/htm l [...] careful; with portions down to 215 Lucas Iraheta DO [address] [place], [address], [facility] Internal Medicine 12/10/2024 16:25:34 5 text/htm l Care Management - HypertensionReported by PatientIFor self care, patient reportsnot under emotional stress. For severity, patient reportssymptoms are improvinganddoes not interfere with daily activities. For associated symptoms, patient reportsno dizziness,no lightheadedness,no chest pain,no shortness of breath,no palpitations,no edema,no calf muscle cramps,no blurred vision,no confusion,no headaches, andno fatigue. Care Management - DiabetesReported by PatientIFor self care, patient reportsseeing eye doctor yearly [...] helped for 10 dayshas [facility]ri ordered [facility] dsa1c is 6.7 was 6.2 admits to less active and diet fair Lucas Iraheta DO [address] [place], [address], [facility] Internal Medicine 04/09/2025 16:06:48
--- OUTSIDE RECORDS SUMMARY | 2025-07-02 09:22 | XMS_ITS | Encounter Summary ---
Author Organization [facility] Address [address] [place] [address] Phone Care Team Providers Care Sanforizer Name Role Phone Lucas Umana DO Primary Care Provider [phone] Darrylda, Lucas Summers DO Unavailable Darrylda, Lucas Summers DO Primary Care Provider [phone] Encounter Details Date Type Department Care Team ([facility] st Contact Info) Description 02/15/2023 Transcribe Orders Virtual Department [address] [place] [address] Lyndsay, Lucas Summers, DO [address] [facility] [place] [address] [place] [address] [email or web address] Pain in finger of both hands (Primary [...] Primary documented in this encounter Care Teams Sanforizer Relationship Specialty Start Date End Date Lucas Umana DO [email or web address] PCP - General 04/18/17 05/09/25 Lucas Umana DO [address] [place] [address] PCP - General Internal Medicine 05/10/25 Lucas Umana DO [address] [place] [address] [email or web address] Insurance Assigned Provider 10/08/23 documented as of this encounter Additional Source Comments The information contained in this document represents components of the legal health record. It is not the complete legal health record.[facility]
--- OUTSIDE RECORDS SUMMARY | 2025-07-02 09:22 | XMS_ITS | Encounter Summary ---
Author Organization [facility] Address [address] [place] [address] Phone Care Team Providers Care Straddle Bug Driver Name Role Phone Lucas Umana DO Primary Care Provider [phone] Lucas Umana DO Unavailable Lucas Umana DO Primary Care Provider [phone] Reason for Referral * MRI/CAT Scan - Closed Specialty Diagnoses / Procedures Referred By Baudilio crews Referred To Contact Radiology Diagnoses Rotator cuff syndrome of right shoulder Procedures MRI Shoulder (Right) CHG MRI, JOINT UPPER EXTREM Lucas Umana DO Phone: tel: fax: mailto:[email or web address] [facility] [address] [place], [place] Phone: tel: Referral ID Status Reason Start Date Expiration Date Visits Re quested Visits Authorized [id number] Closed 04/09/2022 05/09/2022 1 1 Encounter Details Date Type Department Care Team (Late st Contact Info) Description 03/31/2022 Transcribe Orders [facility] Department [address] [place] [address] Lucas Umana DO [address] [facility] [place] [address] [email or web address] Rotator cuff syndrome of right shoulder (Primary [...] of the biceps tendon. Lucas Umana DO IM MR EXTREMITY Final Result documented in this encounter Visit Diagnoses Diagnosis Rotator cuff syndrome of right shoulder- Primary Rotator cuff syndrome of right shoulder documented in this encounter Care Teams Straddle Bug Driver Relationship Specialty Start Date End Date Lucas Umana DO PCP - General 04/18/17 05/09/25 Lucas Umana DO [address] [place] [address] PCP - General Internal Medicine 05/10/25 Lucas Umana DO [address] [place] [address] [email or web address] Insurance Assigned Provider 10/08/23 documented as of this encounter Additional Source Comments The information contained in this document represents components of the legal health record. It is not the complete legal health record.[facility]
--- OUTSIDE RECORDS SUMMARY | 2025-07-02 09:23 | XMS_ITS | Encounter Summary ---
Author Organization [facility] Address [address] [place] [address] Phone Care Team Providers Care Car Ferrier Name Role Phone Lucas Umana DO Primary Care Provider Lucas Umana DO Unavailable Lucas Umana DO Primary Care Provider [phone] Reason for Referral * MRI/CAT Scan - Closed Specialty Diagnoses / Procedures Referred By Baudilio crews Referred To Contact Radiology Diagnoses Cervical disc disorder with radiculopathy, unspecified cervical region Procedures MRI Cervical Spine Lucas Umana DO Phone: tel: fax: mailto:[email or web address] Referral ID Status Reason Start Date Expiration Date Visits Re quested Visits Authorized [id number] Closed 08/10/2019 08/09/2020 1 1 Encounter Details Date Type Department Care Team (Late st Contact Info) Description 08/10/2019 Transcribe Orders Virtual Department [address] [place] [address] Lucas Umana DO [address] [facility] [place] [address] [email or web address] Cervical disc disorder with radiculopathy, unspecified cervical [...] 4. No significant neural foraminal stenosis. POS [id number] Narrative 08/17/2019 12:48 PM EST EXAM: MRI [...] 4. No significant neural foraminal stenosis. POS [id number] Lucas ZULUAGA MR XSPECIALTY Final Result documented in this encounter Visit Diagnoses Diagnosis Cervical disc disorder with radiculopathy, unspecified cervical region- Primary Cervical disc disorder with radiculopathy, unspecified cervical region documented in this encounter Care Teams Car Ferrier Relationship Specialty Start Date End Date Lucas Umana DO PCP - General 04/18/17 05/09/25 Lucas Umana DO [address] [place] [address] PCP - General Internal Medicine 05/10/25 Lucas Umana DO [address] [place] [address] Insurance Assigned Provider 10/08/23 documented as of this encounter Additional Source Comments The information contained in this document represents components of the legal health record. It is not the complete legal health record.[facility]
--- OUTSIDE RECORDS SUMMARY | 2025-07-02 09:23 | XMS_ITS | Encounter Summary ---
Author Organization [facility] Address [address] [place] [address] Phone Care Team Providers Care Ticket Taker Ferryboat Name Role Phone Lucas Umana DO Primary Care Provider [phone] Lyndsay, Lucas Summers DO Unavailable Lyndsay, Lucas Summers DO Primary Care Provider [phone] Encounter Details Date Type Department Care Team (Late st Contact Info) Description 08/22/2018 Ancillary Orders Virtual Department [address] [place] [address] AshuOctober, ELEANOR [address] [place] [place] [address] [email or web address] Pneumonia due to infectious organism, unspecified laterality, [...] lung documented in this encounter Care Teams Ticket Taker Ferryboat Relationship Specialty Start Date End Date Lucas Umana DO PCP - General 04/18/17 05/09/25 Lucas Umana DO [address] [place] [address] PCP - General Internal Medicine 05/10/25 Lucas Umana DO [address] [place] [address] [email or web address] Insurance Assigned Provider 10/08/23 documented as of this encounter Additional Source Comments The information contained in this document represents components of the legal health record. It is not the complete legal health record.[facility]
--- OUTSIDE RECORDS SUMMARY | 2025-07-02 09:23 | XMS_ITS | Clinical Summary ---
Author Organization [facility] Address [address] [place] [address] Phone Care Team Providers Care Intensive Care Nurse Name Role Phone Lucas Umana DO Unavailable Lucas Umana DO Primary Care Provider [phone] Allergies Active Allergy Reactions Criticality Noted Date [...] X 09/02/2017 Obstructive sleep apnea syndrome 09/02/2017 Encounters Date Type Department Care Team Description 05/10/2025 8:05 PM EST - 05/10/2025 11:59 PM EST Hospital Encounter [address] [address] Jim Theodore, DO Discharge Disposition: Home or Self Care 04/03/2025 Procedure Pass [employer] [address] [place] [address] 04/03/2025 Transcribe Orders Virtual Department [address] [place] [address] Jim Theodore, DO Other cervical disc degeneration, mid-cervical region, unspecified level (Primary Dx) from Last 3 Months Immunizations Immunization Administration Dates Next Due COVID-19 [...] EDT Inhaled Oxygen Concentration - - Weight 98.9 kg (218 lb) 05/03/2025 3:47 PM EDT Height 175.3 cm (5' 9 ) 05/03/2025 3:47 PM EDT Body Mass Index 32.19 05/03/2025 3:47 PM EDT Plan of Treatment Health Maintenance Due [...] 05/30/2021, 05/28/2021, Additional history exists COVID-19 VACCINE (2024- season) 2025 05/18/2021, 11/02/2020, 11/02/2020, Additional history [...] Procedure Name Priority Date/Time Associated Diagnosis Comments MRI CERVICAL SPINE (NEURO) FOCUS WITHOUT CONTRAST Routine 05/10/2025 9:36 PM EST Other cervical disc degeneration, mid-cervical region, unspecified level OUTSIDE HDL Routine 02/27/2011 from Last 3 Months or Most Recently Relevant to Health Maintenance Results * MRI CERVICAL SPINE (NEURO) FOCUS [...] DO IMG MR XSPECIALTY Final Resu lt * (ABNORMAL) Outside HDL (02/27/2011) HDL - External 33(A) 40 - 80 mg/dL Historical Provider LAB BLOOD ORDERABLES Alma l Result from Last 3 Months or Most Recently Relevant to Health Maintenance Insurance [facility] [place] [address] [place] [address] Care Teams Intensive Care Nurse Relationship Specialty Start Date End Date Lucas Umana DO [address] [place] [address] PCP - General Internal Medicine 05/10/25 Lucas Umana DO [address] [place] [address] [email or web address] Insurance Assigned Provider 10/08/23 Additional Source Comments The information contained in this document represents components of the legal health record. It is not the complete legal health record.[facility]
[2025-07-02 09:42] LABS: Alanine Aminotransferase 47 U/L (0-40); Albumin Level 4.8 g/dL (3.5-5.0); Alkaline Phosphatase 58 U/L (39-117); Anion Gap 13 (12-20); Aspartate Amino Transferase 26 U/L (5-37); Blood Urea Nitrogen 19 mg/dL (9-16); Calcium 9.2 mg/dL (8.4-10.2); Carbon Dioxide 24 mmol/L (22-29); Chloride 104 mmol/L (96-108); Estimated Glomerular Filt Rate > 60; Potassium 4.1 mmol/L (3.3-5.1); Sodium 137 mmol/L (135-145); Total Protein 8.0 g/dL (6.5-8.0)
== END 2025-07-02 07:58 ==
LOC: HO.LAB 07:57
PROVIDERS: PCP Internal Medicine; Visit Provider Internal Medicine
DX: E11.9 Type 2 diabetes mellitus without complications (principal)
CPT/HCPCS: 36415; 80053; 82043; 82570; 83036